=== PATIENT | male | born 1940 | race Caucasian/White ===

== ENCOUNTER 2024-02-17 10:40 | Outpatient (AMB) | payer MEDICARE, SELFPAY ==
[2024-02-17 10:59] VITALS: BP 122/66; PULSE 60; RESP 12; O2SAT 60
--- NOTE | 2024-02-17 10:59 | MHC.PC.OV ---
Vital Signs 02/17/24 10:59 Height 5 ft 10.08 in BP 122/66 Blood Pressure Location Rt brachial Position Sitting Respiration 12 Pulse 60 Pulse Source Pulse Oximeter Pulse Oximetry (%) 60 L Oxygen Delivery Method Room Air Intake Visit Reasons: chris from [facility] Intake Note: Patient is here to transfer care from [facility] [place] [facility] [place] Mcarth[place]. Patient travels to [place] for about 8 months out of the year. Siding Stapler Required: No Accompanied by: Self / Same As Patient Allergies No Known Allergies Allergy (Verified 02/17/24 11:07) Tobacco use date assessed: 02/17/24 Fall risk assessment: No Falls in past year Last assessed Fall Risk: 02/17/24 Dental Screening Dental Screen Date: 02/17/24 Did you have a dental visit in the last 12 months?: Yes Did you have a dental problem in the last 6 months where you did not have access to dental care?: No Was dental information given to patient?: Patient has dentist HPI HPI Comments History of Present Illness Details The patient is an 83 year old male with a past medical history of type 2 diabetes, HOCM, htn, hld, TAA, YAMILA, BING on cpap presenting for follow up. Transfer from [facility]. Spends February - October with the exception of the holidays in [place] Last labs in August T Chol: 127 LDL 66. August 2023. Normal folate and b12. TSH 6.22. Discussed with his [place] doctor rechecking before deciding whether to treat. He has repeat labs ordered for the first week of February. Type 2 diabetes: A1C 5.9%. On metformin 1000mg once daily. Eye exam UTD CHF: stable on current medications. Follows with [facility]. Colonoscopy: 2015-said does not need further. Was having acid reflux flare last year -saw Dr Paredes. This resolved ROS CONSTITUTIONAL: Denies weight loss, fever and chills. HEENT: Denies changes in vision and hearing. RESPIRATORY: Denies SOB and cough. CV: Denies palpitations and CP GI: Denies abdominal pain, nausea, vomiting and diarrhea. : Denies dysuria and urinary frequency. MSK: Denies new myalgia and joint pain. SKIN: Denies rash and pruritus. NEUROLOGICAL: Denies headache PSYCHIATRIC: Denies recent changes in mood. PHYSICAL EXAM: GENERAL: Alert and oriented x 3. NAD EYES: EOMI. Anicteric. HENT: Moist mucous membranes. No scleral icterus. No cervical lymphadenopathy. LUNGS: Clear to auscultation bilaterally. CARDIOVASCULAR: Regular rate and rhythm. No murmur. No JVD. ABDOMEN: Soft, non-tender +bs EXTREMITIES: No edema. Non-tender. SKIN: No rashes or lesions. Warm. NEUROLOGIC: No focal neurological deficits. CN II-XII grossly intact PSYCHIATRIC: Cooperative. Appropriate mood and affect [facility] Medical History Cervical vertebral fusion Severe obesity (BMI 35.0-39.9) with comorbidity Sleep apnea Peripheral nerve disease Impotence Diffuse spasm of esophagus Hypercholesterolemia Hypertension GERD (gastroesophageal reflux disease) Asthma Aneurysm of thoracic aorta Type 2 diabetes mellitus High output HF (heart failure) Surgical History Hx of total knee arthroplasty History of back surgery Family History Mother Heart attack Father Lung cancer Sister Obesity Brother Bladder cancer Prostate cancer Social History Household Members: Spouse Both parents involved: No Caregiver staying overnight: No Housing: House Are you a primary childcare attendant to a significant other at home: No Do you presently have visiting nurse or other home services: No 75 years or older and lives alone: No Alcohol intake: current Alcohol intake frequency: a few times a month Alcohol type: hard liquor Comment: Mark Calderon Patient Tobacco Use Status: Former Tobacco user Tobacco use type: Cigarette Years Smoked: 15 e-Cigarette/Vaping Use: Never Used Use of substances other than those prescribed or required for medical reasons: No Have you been hit, kicked, punched, or otherwise hurt by someone within the past year? If so, by whom?: No Do you feel safe in your current relationship?: Yes Is there a partner from a previous relationship who is making you feel unsafe now?: No Are you made to feel afraid or neglected: No service: Yes ([employer] ) Current occupational status: retired Current occupational exposures/hazards: No Cognitive needs: No Hearing needs: No Vision needs: Yes (wears glasses, has an eye doctor) Questionnaire PHQ-9 Over the last 2 weeks, how often have you been bothered by any of the following problems? 1. Little interest or pleasure in doing things: not at all 2. Feeling down, depressed, or hopeless: not at all 3. Trouble falling or staying asleep, or sleeping too much: not at all 4. Feeling tired or having little energy: not at all 5. Poor appetite or overeating: not at all 6. Feeling bad about yourself - or that you are a failure or have let yourself or your family down: not at all 7. Trouble concentrating on things, such as reading the newspaper or watching television: not at all 8. Moving or speaking so slowly that other people could have noticed. Or the opposite - being so fidgety or restless that you have been moving around a lot more than usual: not at all 9. Thoughts that you would be better off or of hurting yourself in some way: not at all Total score: 0 Depression Screening Interpretation: Negative (neg) Depression Screening Done: Yes 40209 - PHQ-9 Billing: Yes Source: Developed by Drs. Santosh Meade, Kathi Schwartz, Mayito Phelps and colleagues, with an educational erika from [employer]. Thrive Questionnaire Date Thrive assessed: 02/17/24 I am a: Patient What is your living situation today?: I have a steady place to live Within the past 12 months, did the food you bought not last and you didn't have the money to get more?: Never true Within the past 12 months, did you worry whether your food would run out before you got money to buy more?: Never true Do you have trouble paying for medicines?: No Do you have trouble getting transportation to medical appointments?: No Do you have trouble paying your heating and electricity bill?: No Do you have trouble taking care of your child, family member or friend?: No Do you have trouble with day-to-day activities such as bathing, preparing meals, shopping, managing finances, etc.?: No Are you currently unemployed and looking for a job?: No Are you interested in more education?: No Please select the resources that you would like help with: None Currently or been in a relationship where the following occur: No concerns reported THRIVE Score: 0 AUDIT C Alcohol Use Questionnaire (AUDIT-C) 1. How often do you have a drink containing alcohol?: 2-3 times a week 2. How many drinks containing alcohol do you have on a typical day when you are drinking?: 1 or 2 3. How often do you have six or more drinks on one occasion?: Never Total Score: 3 ALYSA-7 AMB Questionnaire ALYSA-7 Date ALYSA - 7 assessed: 02/17/24 Feeling nervous, anxious, or on edge: 0 = Not at all Not being able to stop or control worryin = Not at all Worrying too much about different things: 0 = Not at all Trouble relaxin = Not at all Being so restless that it is hard to sit still: 0 = Not at all Becoming easily annoyed or irritable: 0 = Not at all Feeling afraid as if something awful might happen: 0 = Not at all Total ALYSA-7 score (0-4 normal; 5-9 mild; 10-14 moderate; 15-21 severe): 0 Source: Developed by Drs. Santosh Meade, Kathi Schwartz, Mayito Phelps and colleagues, with an educational erika from [employer]. ALYSA-7 Assessment Billing ALYSA-7 Assessment Tool: ALYSA-7 Assessment 10788 Physical exam (Primary Care) Vital Signs: Last Vital Signs Pulse 60 02/17/24 10:59 Resp 12 02/17/24 10:59 BP 122/66 02/17/24 10:59 Pulse Ox 60 L 02/17/24 10:59 Oxygen Delivery Method Room Air 02/17/24 10:59 Tobacco/Smoking Status: Tobacco use Status Tobacco use date assessed 02/17/24 02/17/24 11:09 Patient Tobacco Use Status Former Tobacco user 02/17/24 11:10 Tobacco use type Cigarette 02/17/24 11:10 e-Cigarette/Vaping Use Never Used 02/17/24 11:10 PHQ-9: PHQ-9 Score PHQ-9: Total score 0 02/17/24 13:00 Depression Screening Interpretation: Negative (neg) Thrive Assessment: Date of Thrive Assessment Date Thrive assessed 02/17/24 02/17/24 10:59 Currently or been in a relationship where the following occur: No concerns reported Assessment and Plan Assessment & Plan (1) Type 2 diabetes mellitus: Code(s): E11.9 - Type 2 diabetes mellitus without complications Qualifiers: Diabetes mellitus complication detail: with other circulatory complications Diabetes mellitus complication status: with circulatory complication Diabetes mellitus superintendent container terminal insulin use: without intermediate use Qualified Code(s): E11.59 - Type 2 diabetes mellitus with other circulatory complications Plan: Controlled on current medications LDL goal <70. At goal. (2) High output HF (heart failure): Code(s): I50.83 - High output heart failure Plan: continue specialist follow up. Euvolemic. Coding Level of Care Code Est Pt Level 5 (21418) Diagnoses Type 2 diabetes mellitus with other circulatory complication, without long-term current use of insulin E11.59 Diabetes mellitus complication detail: with other circulatory complications Diabetes mellitus complication status: with circulatory complication Diabetes mellitus intermediate insulin use: without intermediate use High output HF (heart failure) I50.83 Additional Codes ALYSA-7 Assessment Billing - ALYSA-7 Assessment Tool: ALYSA-7 Assessment 09633 ([id number]) Time Spent (min) 45
== END 2024-02-17 11:41 | disposition home or self-care (01) ==
PROVIDERS: PCP Internal Medicine; Visit Provider Internal Medicine
DX: E11.59 Type 2 diabetes mellitus with other circulatory complications (principal); I50.83 High output heart failure

== ENCOUNTER → 2024-02-17 10:40 | Outpatient (BNVA) | payer MEDICARE, SELFPAY | PROVIDERS: PCP Internal Medicine; Visit Provider Internal Medicine | DX: E11.59 Type 2 diabetes mellitus with other circulatory complications (principal); I50.83 High output heart failure | CPT/HCPCS: 96127; 99212 ==

== ENCOUNTER 2025-02-19 09:48 | Outpatient (AMB) | payer MEDICARE, SELFPAY ==
--- OUTSIDE RECORDS SUMMARY | 2023-10-25 07:15 | XMS_ITS ---
Author Organization [facility] Address [address] [place] [address] Care Team Providers Care On Air Announcer Name Role Phone Mariajose MAC, Sayra Primary Care Provider Unavailab MAXIM Snell REASON FOR VISIT 1 WEEK RECHECK EARS Encounters Encounter Location Date Provider Diagnosis [facility] [address] [place] [address] 10/25/2023 MAXIM LAYNE Plan Of Treatment Next Appt Details Provider Name:MAXIM IRIZARRY, 04/16/2025 02:30:00 PM, [address], [place], [address], Progress Notes * SUN ROSALES JR RDOB:[birth year] (85 yo M)Acc No.[id number]:10/25/2023 Progress Notes Patient: SUN MENDENHALL JR Provider: Maddie Layne PA-C :1940 A ge:83 Y S ex:Male Date:10/25/2023 Address:[address] [place] [address] [facility] Pcp:Sayra Billy MD Subjective: * Chief Complaints: * 1 . 1 WEEK RECHECK EARS. * Medical History: Objective: * Vitals: * Physical Examination: Assessment: Plan: * Treatment: * * Electronic signature of IVET RICO on 02/19/2025 at 11:48 AM EDT Sign off status: Pending * Provider: Maddie Layne PA-C Date: 0 10/25/2023 Generated for Harjit gray/Fritz/Bob on: 0 02/19/2025 11:48 AM EDT
--- OUTSIDE RECORDS SUMMARY | 2024-03-08 09:00 | XMS_ITS ---
Author Organization [facility] Address [address] [place] [address] Care Team Providers Care Patrol Captain Name Role Phone Sayra Billy MD Primary Care Provider Unavailab MAXIM Snell Unavailable REASON FOR VISIT RECHECK EARS Encounters Encounter Location Date Provider Diagnosis [facility] [address] [place] [address] 03/08/2024 MAXIM LAYNE Plan Of Treatment Next Appt Details Provider Name:MAXIM IRIZARRY, 04/16/2025 02:30:00 PM, [address], [place], [address], Progress Notes * SUN ROSALES JR RDOB:[birth year] (85 yo M)Acc No.[id number]:03/08/2024 Progress Notes Patient: SUN MENDENHALL JR Provider: Maddie Layne PA-C :1940 A ge:84 Y S ex:Male Date:03/08/2024 Address:[address] [place], [place] [address] [facility] Pcp:Sayra Billy MD Subjective: * Chief Complaints: * 1 . RECHECK EARS. * Medical History: Objective: * Vitals: * Physical Examination: Assessment: Plan: * Treatment: * * Electronic signature of NIEVES LAYNE , IVET on 02/19/2025 at 11:47 AM EDT Sign off status: Pending * Provider: Maddie Layne PA-C Date: 1 Generated for Harjit gray/Fritz/Bob on: 0 02/19/2025 11:47 AM EDT
--- OUTSIDE RECORDS SUMMARY | 2024-04-19 10:45 | XMS_ITS ---
Author Organization [facility] Address [address] [address] Care Team Providers Care Aerial Sprayer Name Role Phone Roberto Carr Unavailable [phone] Edward Ion Unavailable [phone] REASON FOR VISIT FU with compliance print after mask fitting Encounters Encounter Location Date Provider Diagnosis [facility] [address] [address] 04/19/2024 Ion Leon Plan Of Treatment Next Appt Details Provider Name:Roberto Carr, 1 02:00:00 PM, [address] [place] [address], [place] [address], [place], [address], Progress Notes * SUN ROSALES JR RDOB:[birth year] (85 yo M)Acc No.[id number]:04/19/2024 Progress Notes Patient: Jose SUN MASTERSON JR Provider: Victor Manuel Vernon :1940 A ge:84 Y S ex:Male Date:04/19/2024 Phone: Address:[address] [place], [place] [id number] Subjective: * Chief Complaints: * F U with compliance print after mask fitting * Electronic signature of Claribel Leon , ANDRE on 02/19/2025 at 11:47 AM EDT Sign off status: Pending * Provider: Victor Manuel Vernon Date: 06/19/2023 Generated for Printi ng/Faphig/eTransmitting on: 0 02/19/2025 11:47 AM EDT
--- OUTSIDE RECORDS SUMMARY | 2024-06-16 05:00 | XMS_ITS ---
Author Organization [facility] Address [address] [address] Care Team Providers Care Economics Consultant Name Role Phone Roberto Carr Unavailable [phone] Migration, Provider Unavailable Unavailable REASON FOR VISIT EMR-Hira Encounters Encounter Location Date Provider Diagnosis [facility] [address] [address] 06/16/2024 Provider Migration Plan Of Treatment Next Appt Details Provider Name:Roberto Carr, 1 02:00:00 PM, [address] [place] [address], [address], [address], Progress Notes * SUN ROSALES JR RDOB:[birth year] (85 yo M)Acc No.[id number]:06/16/2024 Patient: SUN MENDENHALL JR :1940 A ge:84 Y S ex:Male Phone: Address:[address] [place] [id number] Subjective: * Chief Complaints: * E MR-Hira * * Date:
--- OUTSIDE RECORDS SUMMARY | 2024-06-17 05:00 | XMS_ITS ---
Author Organization [facility] Address [address] [facility] [address] [place] [address] Care Team Providers Care Hand Bender Name Role Phone Roberto Carr Unavailable [phone] Migration, Provider Unavailable Unavailable Allergies Allergen (clinical drug ingredient) Drug/Non Drug Allergy documented on EMR Reaction Allergy Type Onset Date Status celecoxib CeleBREX Unknown Drug Allergy Active REASON FOR VISIT EMR-Hira Medications Medication SIG (Take, Route, Frequency, Duration) Notes Start Date End Date Status Toprol XL 50 mg tablet,extended release 50 *Reorder from [employer] for eRx and Interaction Alerts* 06/19/2017 Active Losartan Potassium 50 MG Tablet Oral 06/19/2017 Active albuterol sulfate 2.5 mg/3 mL (0.083 %) 2.5 mg Dx: J44.9//VIA NEBULIZER *Reorder from [employer] for eRx and Interaction Alerts* 08/22/2018 Active Lipitor 20 MG Tablet Oral 06/19/2017 Active predniSONE 20 MG Tablet Oral 2 TAB PO QD FOR 7D THEN 1 TAB PO QD X 7D//DX: J20.9 12/11/2018 Active Flonase Allergy Relief 50 mcg/actuation 50 *Reorder from [employer] for eRx and Interaction Alerts* 06/19/2017 Active Xopenex 0.63 mg/3 mL solution for nebuli 0.63 VIA NEBULIZER//J45.20 *Reorder from [employer] for eRx and Interaction Alerts* 08/22/2018 Active Protonix 40 mg tablet,delayed release 40 *Reorder from [employer] for eRx and Interaction Alerts* 06/19/2017 Active Advair Diskus 500 mcg-50 mcg/dose powder 500-50 *Reorder from [employer] for eRx and Interaction Alerts* 03/06/2019 Active hydrocodone 10 mg-chlorpheniramine 8 mg/ 10-8 *Reorder from [employer] for eRx and Interaction Alerts* 01/11/2022 Active Trelegy Ellipta 100 mcg-62.5 mcg-25 mcg 100-62.5-25 *Reorder from [employer] for eRx and Interaction Alerts* 04/11/2019 Active Advair Diskus 250 mcg-50 mcg/dose powder 250-50 *Reorder from [employer] for eRx and Interaction Alerts* 12/30/2021 Active Ventolin HFA 90 mcg/actuation aerosol in 90 *Reorder from [employer] for eRx and Interaction Alerts* 06/19/2017 Active Montelukast Sodium 10 MG Tablet Oral DX: J30.9 08/09/2017 Active predniSONE 10 MG Tablet Oral 02/09/2019 Active Encounters Encounter Location Date Provider Diagnosis [facility] [address] [address] 06/17/2024 Provider Migration Other fatigue R53.83 ; Other hypersomnia G47.19 ; Obstructive sleep apnea (adult) (pediatric) G47.33 and Snoring R06.83 Assessments Encounter Date Diagnosis (ICD Code) Assessment Notes Treatment Notes Treatment Clinical Notes Section Notes 06/17/2024 Other fatigue (ICD-10 - R53.83) 06/17/2024 Other hypersomnia (ICD-10 - G47.19) 06/17/2024 Obstructive sleep apnea (adult) (pediatric) (ICD-10 - G47.33) 06/17/2024 Snoring (ICD-10 - R06.83) Plan Of Treatment Next Appt Details Provider Name:Roberto Carr, 1 02:00:00 PM, [address] [facility] [address], [place], [address], Progress Notes * SUN ROSALES JR RDOB:[birth year] (85 yo M)Acc No.[id number]:06/17/2024 Patient: SUN MENDENHALL JR :1940 A ge:84 Y S ex:Male Phone: Address:[address] [place] [address], [address] Subjective: * Chief Complaints: * E MR-Hira * Medications: T akingMontelukast Sodium 10 MG Tablet Oral , Notes to Pharmacist: DX: J30.9Advair Diskus 500 mcg-50 mcg/dose powder 500-50 , Notes to Pharmacist: *Reorder from [facility] for eRx and Interaction Alerts*Flonase Allergy Relief 50 mcg/actuation 50 , Notes to Pharmacist: *Reorder from [facility] for eRx and Interaction Alerts*Protonix 40 mg tablet,delayed release 40 , Notes to Pharmacist: *Reorder from [facility] for eRx and Interaction Alerts*predniSONE 10 MG Tablet Oral predniSONE 10 MG Tablet Oral , Notes to Pharmacist: TAKE 6 TABS PO DAILY X 7D THEN TAKE 4 TABS PO DAILY X 7D THEN TAKE 2 TABS PO DAILY X 7 DAYSAdvair Diskus 250 mcg-50 mcg/dose powder 250-50 , Notes to Pharmacist: *Reorder from [facility] for eRx and Interaction Alerts*Advair Diskus 500 mcg-50 mcg/dose powder 500-50 , Notes to Pharmacist: *Reorder from [facility] for eRx and Interaction Alerts*hydrocodone 10 mg-chlorpheniramine 8 mg/ 10-8 , Notes to Pharmacist: *Reorder from [facility] for eRx and Interaction Alerts*predniSONE 20 MG Tablet Oral , Notes to Pharmacist: 2 TAB PO QD FOR 7D THEN 1 TAB PO QD X 7D//DX: J20.9albuterol sulfate 2.5 mg/3 mL (0.083 %) 2.5 mg , Notes to Pharmacist: Dx: J44.9//VIA NEBULIZER *Reorder from [facility] for eRx and Interaction Alerts*albuterol sulfate 2.5 mg/3 mL (0.083 %) 2.5 mg , Notes to Pharmacist: *Reorder from [facility] for eRx and Interaction Alerts*Toprol XL 50 mg tablet,extended release 50 , Notes to Pharmacist: *Reorder from [facility] for eRx and Interaction Alerts*Advair Diskus 250 mcg-50 mcg/dose powder 250-50 , Notes to Pharmacist: *Reorder from [facility] for eRx and Interaction Alerts*Trelegy Ellipta 100 mcg-62.5 mcg-25 mcg 100-62.5-25 , Notes to Pharmacist: *Reorder from [facility] for eRx and Interaction Alerts*Ventolin HFA 90 mcg/actuation aerosol in 90 , Notes to Pharmacist: *Reorder from [facility] for eRx and Interaction Alerts*Xopenex 0.63 mg/3 mL solution for nebuli 0.63 , Notes to Pharmacist: VIA NEBULIZER//J45.20 *Reorder from [facility] for eRx and Interaction Alerts*albuterol sulfate 2.5 mg/3 mL (0.083 %) 2.5 mg , Notes to Pharmacist: *Reorder from [facility] for eRx and Interaction Alerts*Advair Diskus 500 mcg-50 mcg/dose powder 500-50 , Notes to Pharmacist: *Reorder from [facility] for eRx and Interaction Alerts*Lipitor 20 MG Tablet Oral Losartan Potassium 50 MG Tablet Oral predniSONE 10 MG Tablet Oral hydrocodone 10 mg-chlorpheniramine 8 mg/ 10-8 , Notes to Pharmacist: *Reorder from [facility] for eRx and Interaction Alerts*predniSONE 10 MG Tablet Oral Xopenex 0.63 mg/3 mL solution for nebuli 0.63 , Notes to Pharmacist: VIA NEBULIZER//J45.20 *Reorder from [facility] for eRx and Interaction Alerts*Taking Montelukast Sodium 10 MG Tablet Oral , Notes to Pharmacist: DX: J30.9Taking Advair Diskus 500 mcg-50 mcg/dose powder 500-50 , Notes to Pharmacist: *Reorder from [facility] for eRx and Interaction Alerts*Taking Flonase Allergy Relief 50 mcg/actuation 50 , Notes to Pharmacist: *Reorder from [facility] for eRx and Interaction Alerts*Taking Protonix 40 mg tablet,delayed release 40 , Notes to Pharmacist: *Reorder from [facility] for eRx and Interaction Alerts*Taking predniSONE 10 MG Tablet Oral Taking predniSONE 10 MG Tablet Oral , Notes to Pharmacist: TAKE 6 TABS PO DAILY X 7D THEN TAKE 4 TABS PO DAILY X 7D THEN TAKE 2 TABS PO DAILY X 7 DAYSTaking Advair Diskus 250 mcg-50 mcg/dose powder 250-50 , Notes to Pharmacist: *Reorder from [facility] for eRx and Interaction Alerts*Taking Advair Diskus 500 mcg-50 mcg/dose powder 500-50 , Notes to Pharmacist: *Reorder from [facility] for eRx and Interaction Alerts*Taking hydrocodone 10 mg-chlorpheniramine 8 mg/ 10-8 , Notes to Pharmacist: *Reorder from [facility] for eRx and Interaction Alerts*Taking predniSONE 20 MG Tablet Oral , Notes to Pharmacist: 2 TAB PO QD FOR 7D THEN 1 TAB PO QD X 7D//DX: J20.9Taking albuterol sulfate 2.5 mg/3 mL (0.083 %) 2.5 mg , Notes to Pharmacist: Dx: J44.9//VIA NEBULIZER *Reorder from [facility] for eRx and Interaction Alerts*Taking albuterol sulfate 2.5 mg/3 mL (0.083 %) 2.5 mg , Notes to Pharmacist: *Reorder from [facility] for eRx and Interaction Alerts*Taking Toprol XL 50 mg tablet,extended release 50 , Notes to Pharmacist: *Reorder from [facility] for eRx and Interaction Alerts*Taking Advair Diskus 250 mcg-50 mcg/dose powder 250-50 , Notes to Pharmacist: *Reorder from [facility] for eRx and Interaction Alerts*Taking Trelegy Ellipta 100 mcg-62.5 mcg-25 mcg 100-62.5-25 , Notes to Pharmacist: *Reorder from [facility] for eRx and Interaction Alerts*Taking Ventolin HFA 90 mcg/actuation aerosol in 90 , Notes to Pharmacist: *Reorder from [facility] for eRx and Interaction Alerts*Taking Xopenex 0.63 mg/3 mL solution for nebuli 0.63 , Notes to Pharmacist: VIA NEBULIZER//J45.20 *Reorder from [facility] for eRx and Interaction Alerts*Taking albuterol sulfate 2.5 mg/3 mL (0.083 %) 2.5 mg , Notes to Pharmacist: *Reorder from [facility] for eRx and Interaction Alerts*Taking Advair Diskus 500 mcg-50 mcg/dose powder 500-50 , Notes to Pharmacist: *Reorder from [facility] for eRx and Interaction Alerts*Taking Lipitor 20 MG Tablet Oral Taking Losartan Potassium 50 MG Tablet Oral Taking predniSONE 10 MG Tablet Oral Taking hydrocodone 10 mg-chlorpheniramine 8 mg/ 10-8 , Notes to Pharmacist: *Reorder from [facility] for eRx and Interaction Alerts*Taking predniSONE 10 MG Tablet Oral Taking Xopenex 0.63 mg/3 mL solution for nebuli 0.63 , Notes to Pharmacist: VIA NEBULIZER//J45.20 *Reorder from [facility] for eRx and Interaction Alerts* * Allergies: C eleBREX: Allergy Assessment: * Assessment: 1. O ther hypersomnia - G47.19 2 . O bstructive sleep apnea (adult) (pediatric) - G47.33 3 . S noring - R06.83 4 . O ther fatigue - R53.83 Billing Information: * Visit Code: 01950 Office Visit, Est Pt., Level 3. * * Date:
--- OUTSIDE RECORDS SUMMARY | 2024-06-27 11:40 | XMS_ITS ---
Author Organization [facility] [employer] [facility] Address [address] [address] Care Team Providers Care New Car Inspector Name Role Phone Stacia Quiles Primary Care Provider LEONARDO Dowd Unavailable [phone] REASON FOR VISIT TURP Medications Medication SIG (Take, Route, Frequency, Duration) Notes Start Date End Date Status Albuterol Sulfate HFA 108 (90 Base) MCG/ACT INHALE 1 PUFF EVERY 4 HOURS NEEDED Inhalation; Duration: 59 Days Active Cephalexin 500 MG Oral; Duration: 10 Days Active Finasteride 5 MG Oral; Duration: 90 Days Active Amitriptyline HCl 10 MG 1 tablet at bedt minerva Orally Once a day; Duration: 30 day(s) 06/21/2024 Active Methocarbamol 500 MG 1.5 tablets Orally every 4 hrs; Duration: 30 day(s) 06/21/2024 07/21/2024 Active metFORMIN HCl 1000 MG Oral; Duration: 90 Days Active Bumetanide 1 MG Oral; Duration: 90 Days Active Potassium Chloride ER 10 MEQ TAKE 1 CAPSULE BY MOUTH WITH FOOD 2 TIMES A DAY Oral; Duration: 90 Days Active Famotidine 40 MG TAKE 1 TABLET DAILY AT BEDTIME Oral; Duration: 90 Days Active Tamsulosin HCl 0.4 MG Oral; Duration: 90 Days Active Losartan Potassium 50 MG Oral; Duration: 90 Days Active Gabapentin 600 MG TAKE 1 TO 2 TABLETS BY MOUTH ONCE A DAY Oral; Duration: 90 Days Active Encounters Encounter Location Date Provider Diagnosis [facility] [address] [address] 06/27/2024 LEONARDO TILLMAN Plan Of Treatment Next Appt Details Provider Name:BEATRICE ASHER, 03/19/2025 10:30:00 AM, [address] [address], [place], [address], Progress Notes * SUN ROSALES JrDOB:[birth year] (85 yo M)Acc No.[id number]:06/27/2024 Patient: SUN MENDENHALL Provider: Kwadwo TILLMAN MD :1940 A ge:84 Y S ex:Male Date:06/27/2024 Address:[address] [place], [place] [id number] Pcp:Stacia Quiles Subjective: * Chief Complaints: * 1 . TURP. * Medical History: * Medications: T aking Gabapentin 600 MG Tablet TAKE 1 TO 2 TABLETS BY MOUTH ONCE A DAY Oral , Taking Losartan Potassium 50 MG Tablet Oral , Taking Tamsulosin HCl 0.4 MG Capsule Oral , Taking Famotidine 40 MG Tablet TAKE 1 TABLET DAILY AT BEDTIME Oral , Taking Potassium Chloride ER 10 MEQ Capsule Extended Release TAKE 1 CAPSULE BY MOUTH WITH FOOD 2 TIMES A DAY Oral , Taking Bumetanide 1 MG Tablet Oral , Taking metFORMIN HCl 1000 MG Tablet Oral , Taking Albuterol Sulfate HFA 108 (90 Base) MCG/ACT Aerosol Solution INHALE 1 PUFF EVERY 4 HOURS NEEDED Inhalation , Taking Methocarbamol 500 MG Tablet 1.5 tablets Orally every 4 hrs , stop date 07/21/2024, Taking Amitriptyline HCl 10 MG Tablet 1 tablet at bedtime Orally Once a day , Taking Finasteride 5 MG Tablet Oral , Taking Cephalexin 500 MG Capsule Oral Objective: * Vitals: Assessment: Plan: * Treatment: * Billing Information: * Visit Code: * Procedure Codes: * Electronic signature of HOMERO TILLMAN MD on 02/19/2025 at 11:48 AM EDT Sign off status: Pending * Provider: Kwadwo TILLMAN MD Date: 06/27/2024 Generated for Harjit gray/Fritz/Bob on: 02/19/2025 11:48 AM EDT
--- OUTSIDE RECORDS SUMMARY | 2024-07-10 09:30 | XMS_ITS ---
Author Organization [facility] Address [address] [address] Care Team Providers Care Sales Representative [facility] Name Role Phone Roberto Carr Unavailable [phone] Suzie Corrales Unavailable [phone] REASON FOR VISIT FU with compliance print after mask fitting Encounters Encounter Location Date Provider Diagnosis [facility] [address] [address] 07/10/2024 Suzie Corrales Plan Of Treatment Next Appt Details Provider Name:Roberto Carr, 1 02:00:00 PM, [address] [place] [address], [address] [address], [place], [address], Progress Notes * SUN ROSALES JR RDOB:[birth year] (85 yo M)Acc No.[id number]:07/10/2024 Progress Notes Patient: Jose CHANSUN Fisher JR Provider: Darlene Corrales :1940 A ge:84 Y S ex:Male Date:07/10/2024 Phone: Address:[address] [place], [place] [id number] Subjective: * Chief Complaints: * F U with compliance print after mask fitting * Electronic signature of Santa Corrales , ANDRE, [id number] on 02/19/2025 at 11:48 AM EDT Sign off status: Pending * Provider: Darlene Corrales Date: 0 07/10/2024 Generated for Ernestinei ng/Faxing/eTransmitting on: 0 02/19/2025 11:48 AM EDT
--- NOTE | 2025-02-19 09:52 | A.OFFPC_ITS ---
Vital Signs 02/19/25 09:55 Height 5 ft 10.8 in Weight 264 lb BMI 37.0 BP 118/64 Blood Pressure Location Rt brachial Position Sitting Respiration 14 Pulse 75 Pulse Source Pulse Oximeter Temp 98.2 F Temp Source Oral Pulse Oximetry (%) 95 Oxygen Delivery Method Room Air Intake Visit Reasons: Follow up Intake Note: Follow up Heavy Equipment Supervisor Required: No Allergies No Known Allergies Allergy (Verified 02/19/25 09:53) Tobacco use date assessed: 02/19/25 Fall risk assessment: No Falls in past year Last assessed Fall Risk: 02/19/25 Dental Screening Dental Screen Date: 02/19/25 Did you have a dental visit in the last 12 months?: Yes Did you have a dental problem in the last 6 months where you did not have access to dental care?: No Was dental information given to patient?: Patient has dentist HPI HPI Comments History of Present Illness Details The patient is an 85 year old male with a past medical history of type 2 diabetes, HOCM, htn, hld, TAA, YAMILA, BING on cpap presenting for follow up. Spends February - October with the exception of the holidays in [place] Type 2 diabetes: A1C 5.6%. On metformin 1000mg once daily. Eye exam UTD. Had full labs in August 2024 in [place]-scanned in CHF: stable on current medications. Follows with [facility] clinic. Has a provider service representative in [place]. Increased cough, wheezing for the past few days. No weight gain, no chest pressure Had emergency TURP in [place] May 2024. Following up there Colonoscopy: 2016-said does not need further. Was having acid reflux flare last year -saw Dr Paredes. This resolved ROS see HPI PHYSICAL EXAM: GENERAL: Alert and oriented x 3. NAD EYES: EOMI. Anicteric. HENT: Moist mucous membranes. No scleral icterus. No cervical lymphadenopathy. LUNGS: Clear to auscultation bilaterally. CARDIOVASCULAR: Regular rate and rhythm. No murmur. No JVD. ABDOMEN: Soft, non-tender +bs EXTREMITIES: No edema. Non-tender. SKIN: No rashes or lesions. Warm. NEUROLOGIC: No focal neurological deficits. CN II-XII grossly intact PSYCHIATRIC: Cooperative. Appropriate mood and affect [facility] Medical History (Updated 02/20/25 @ 11:23 by Kathi Mcarthur MD) Cervical vertebral fusion Severe obesity (BMI 35.0-39.9) with comorbidity Sleep apnea Peripheral nerve disease Impotence Diffuse spasm of esophagus Hypercholesterolemia Hypertension GERD (gastroesophageal reflux disease) Asthma Aneurysm of thoracic aorta Type 2 diabetes mellitus High output HF (heart failure) Surgical History Hx of total knee arthroplasty History of back surgery Family History Mother Heart attack Father Lung cancer Sister Obesity Brother Bladder cancer Prostate cancer Social History Household Members: Spouse Both parents involved: No Caregiver staying overnight: No Housing: House Are you a primary critical care nurse to a significant other at home: No Do you presently have visiting nurse or other home services: No 75 years or older and lives alone: No Alcohol intake: current Alcohol intake frequency: a few times a month Alcohol type: hard liquor Comment: Mark Calderon Patient Tobacco Use Status: Former Tobacco user Tobacco use type: Cigarette Years Smoked: 15 e-Cigarette/Vaping Use: Never Used service: Yes ([employer] ) Current occupational status: retired Current occupational exposures/hazards: No Cognitive needs: No Hearing needs: No Vision needs: Yes (wears glasses, has an eye doctor) Questionnaire Thrive Questionnaire Date Thrive assessed: 02/17/24 I am a: Patient What is your living situation today?: I have a steady place to live Within the past 12 months, did the food you bought not last and you didn't have the money to get more?: Never true Within the past 12 months, did you worry whether your food would run out before you got money to buy more?: Never true Do you have trouble paying for medicines?: No Do you have trouble getting transportation to medical appointments?: No Do you have trouble paying your heating and electricity bill?: No Do you have trouble taking care of your child, family member or friend?: No Do you have trouble with day-to-day activities such as bathing, preparing meals, shopping, managing finances, etc.?: No Are you currently unemployed and looking for a job?: No Are you interested in more education?: No Please select the resources that you would like help with: None Currently or been in a relationship where the following occur: No concerns reported THRIVE Score: 0 ALYSA-7 AMB Questionnaire ALYSA-7 Date ALYSA - 7 assessed: 02/17/24 Source: Developed by Drs. Santosh Meade, Kathi Schwartz, Mayito Phelps and colleagues, with an educational erika from [employer]. Physical exam (Primary Care) Vital Signs: Last Vital Signs Temp 98.2 F 02/19/25 09:55 Pulse 75 02/19/25 09:55 Resp 14 02/19/25 09:55 BP 118/64 02/19/25 09:55 Pulse Ox 95 02/19/25 09:55 Oxygen Delivery Method Room Air 02/19/25 09:55 BMI result Body Mass Index 37.0 Tobacco/Smoking Status: Tobacco use Status Tobacco use date assessed 02/19/25 02/19/25 10:04 Patient Tobacco Use Status Former Tobacco user 02/19/25 09:55 Tobacco use type Cigarette 02/19/25 09:55 e-Cigarette/Vaping Use Never Used 02/19/25 09:55 Thrive Assessment: Date of Thrive Assessment Date Thrive assessed 02/17/24 02/19/25 09:55 Currently or been in a relationship where the following occur: No concerns reported Results AMB Hemoglobin A1c AMB Hemoglobin A1c 5.6 % Last Edit by Colleen Maddox CMA on 02/19/25 10:11 Results Reviewed Results Reviewed: Laboratory Last Values Hgb A1c (Clinic) 5.6 % (4.0-6.0) 02/19/25 10:05 Coding Level of Care Code Est Pt Level 4 (40907) Diagnoses Type 2 diabetes mellitus with other circulatory complication, without long-term current use of insulin E11.59 Diabetes mellitus terminal system operator insulin use: without chcf use Diabetes mellitus complication status: with circulatory complication Diabetes mellitus complication detail: with other circulatory complications High output HF (heart failure) I50.83 Acute cough R05.1 Cough type: acute Assessment & Plan Assessment & Plan (1) Type 2 diabetes mellitus: Code(s): E11.9 - Type 2 diabetes mellitus without complications Category: Medical Qualifiers: Diabetes mellitus chcf insulin use: without chcf use Diabetes mellitus complication status: with circulatory complication Diabetes mellitus complication detail: with other circulatory complications Qualified Code(s): E11.59 - Type 2 diabetes mellitus with other circulatory complications (2) High output HF (heart failure): Code(s): I50.83 - High output heart failure Category: Medical (3) Cough: Code(s): R05.9 - Cough, unspecified Category: Medical Qualifiers: Cough type: acute Qualified Code(s): R05.1 - Acute cough Plan Type 2 DM-well controlled on current medication. A1C is at goal without hypoglycemia. Continue at least annual eye exams. CHF-euvolemic Cough minimal wheeze-zpak and prednisone if symptoms persist/worsen Blood pressure is stable on current medications. Efforts todward weight loss. Low salt diet Orders: Orders AMB Hemoglobin A1c 02/19/25 E11.59 - Type 2 diabetes mellitus with other circulatory complications Medications: New azithromycin For 250 mg dose pack: take 500 mg today (day 1), then 250 mg for 4 days (days 2-5) PO 6 tabs 0RF prednisone 40 mg (2 x 20 mg) PO DAILY 10 tabs 0RF
[2025-02-19 09:55] VITALS: BP 118/64; PULSE 75; RESP 14; TEMP 36.8; O2SAT 95; BMI 37.0
--- OUTSIDE RECORDS SUMMARY | 2025-02-19 11:48 | XMS_ITS | Patient Health Record ---
Author Organization [facility] Address [address] [place] [address] Care Team Providers Care Clinical Geneticist Name Role Phone Mariajose MAC, Sayra Primary Care Provider Unavailab lelo XIMAXIM CLARK Unavailable Allergies No Known Allergies Reason For Referral No Information Medications Medication SIG (Take, Route, Frequency, Duration) Notes Start Date End Date Status Protonix 40 MG 1 tablet Orally Once a day Active Azelastine-Fluticasone 137-50 MCG/ACT 2 sprays in each nostril Nasally once every night; Duration: 30 day(s) Active metFORMIN HCl 500 MG 1 tablet with a patricia l Orally Once a day Active Toprol XL 25 MG 1 tablet Orally Once a day Active Gabapentin 600 MG 1 tablet Orally Thre e times a day Active Clotrimazole 1 % 5 drops LEFT EAR Twi ce a day; Duration: 10 days Active Social History Tobacco Use: Social History Observation Description Date Details (start date - stop date) Former Smoker NA - NA Tobacco Use: Question Answer Notes Are you a: former smoker How long has it been since y ou last smoked? > 10 years Additional Findings: Tobacco Non-User Ex -very heavy cigarette smoker (40+/day) Alcohol Screening: Question Answer Notes Did you have a drink contain ing alcohol in the past year? Yes How often did you have a dri nk containing alcohol in the past year? Two to three times per week (3 points) How many drinks did you have on a typical day when you were drinking in the past year? 1 or 2 (0 points) How often did you have six o r more drinks on one occasion in the past year? Never (0 points) Points 3 Interpretation Negative Smoking Question Answer Notes Are you a: former smoker AUDIT-C (Standard) Question Answer Notes Did you have a drink containing alcohol in the p ast year? 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 [address] [facility] [address] [place] [address] 03/13/2024 MAXIM XI Unspecified chronic otitis externa, bilateral H60.63 and Acquired stenosis of external ear canal, unspecified, bilateral H61.303 [facility] [address] [facility] [address] [place] [address] 10/02/2024 MAXIM XI Unspecified chronic otitis externa, bilateral H60.63 and Acquired stenosis of external ear canal, unspecified, bilateral H61.303 Assessments Encounter Date Diagnosis (ICD Code) Assessment Notes Treatment Notes Treatment Clinical Notes Section Notes 03/13/2024 Unspecified chronic otitis externa, bilateral (ICD-10 - H60.63) s/p debridement, keep ear canals dry, start the ear hygiene. *Pt w/narrow ear canals, advised to keep ears dry, do not hold ear up to shower water, use tissue on pinkie finger to dry inside ear opening, use academic department chair on cool for 15-20secs 6inches away from ear opening to dry, do no use Qtips, use 1/2 white vinegar/1/2 rubbing alcohol in plastic travel bottle, squeeze drops into canals, pump tragus and let drain out in sink or shower. rinse w/the solution 2 times each side every other day. use cream to meati 1x a week 03/13/2024 Acquired stenosis of external ear canal, unspecified, bilateral (ICD-10 - H61.303) 10/02/2024 Unspecified chronic otitis externa, bilateral (ICD-10 - H60.63) s/p debridement, keep ear canals dry, start the ear hygiene. *Pt w/narrow ear canals, advised to keep ears dry, do not hold ear up to shower water, use tissue on pinkie finger to dry inside ear opening, use academic department chair on cool for 15-20secs 6inches away from ear opening to dry, do no use Qtips, use 1/2 white vinegar/1/2 rubbing alcohol in plastic travel bottle, squeeze drops into canals, pump tragus and let drain out in sink or shower. rinse w/the solution 2 times each side every other day. use cream to meati 1x a week 10/02/2024 Acquired stenosis of external ear canal, unspecified, bilateral (ICD-10 - H61.303) Plan Of Treatment Next Appt Details Provider Name:MAXIM IRIZARRY, 04/16/2025 02:30:00 PM, [address], [address], [place], [address], Insurance Providers Payer Name Payer Address Payer Phone Subscriber Number Group Number Insured Name Patient Relationship to Insured Coverage Start Date Coverage End Date MEDICARE [place] PART B [address] [place] [address] [id number] SUN ROSALES JR Self - patient is the insured [place] [address] [place] [address] [phone] [id number] SUN ROSALES JR Self - patient is the insured Medical (General) History Medical History History ICD Code Arthritis Esophageal reflux asthma sleep apnea COPD Diabetes Surgical History Surgery Date(Month/Year) neck surgery Hospitalization History Reason Date(Month/Year)
--- OUTSIDE RECORDS SUMMARY | 2025-02-19 11:48 | XMS_ITS | Patient Health Record ---
Author Organization [facility] Address [address] [facility] [address] [place] [address] Care Team Providers Care Title Abstractor Name Role Phone Roberto Carr Unavailable [phone] Ion Leon Unavailable [phone] Suzie Corrales Unavailable [phone] Migration, Provider Unavailable Unavailable Reason For Referral No Information Medications Medication SIG (Take, Route, Frequency, Duration) Notes Start Date End Date Status Xopenex 0.63 mg/3 mL solution for nebuli 0.63 VIA NEBULIZER//J45.20 *Reorder from [employer] for eRx and Interaction Alerts* 08/22/2018 Active Ventolin HFA 90 mcg/actuation aerosol in 90 *Reorder from [employer] for eRx and Interaction Alerts* 06/19/2017 Active Lipitor 20 MG Tablet Oral 06/19/2017 Active predniSONE 20 MG Tablet Oral 2 TAB PO QD FOR 7D THEN 1 TAB PO QD X 7D//DX: J20.9 12/11/2018 Active hydrocodone 10 mg-chlorpheniramine 8 mg/ 10-8 *Reorder from [facility]ulmonx for eRx and Interaction Alerts* 01/11/2022 Active Toprol XL 50 mg tablet,extended release 50 *Reorder from [employer] for eRx and Interaction Alerts* 06/19/2017 Active Losartan Potassium 50 MG Tablet Oral 06/19/2017 Active albuterol sulfate 2.5 mg/3 mL (0.083 %) 2.5 mg Dx: J44.9//VIA NEBULIZER *Reorder from [employer] for eRx and Interaction Alerts* 08/22/2018 Active Trelegy Ellipta 100 mcg-62.5 mcg-25 mcg 100-62.5-25 *Reorder from [employer] for eRx and Interaction Alerts* 04/11/2019 Active Flonase Allergy Relief 50 mcg/actuation 50 *Reorder from [employer] for eRx and Interaction Alerts* 06/19/2017 Active Advair Diskus 250 mcg-50 mcg/dose powder 250-50 *Reorder from [employer] for eRx and Interaction Alerts* 12/30/2021 Active Protonix 40 mg tablet,delayed release 40 *Reorder from [employer] for eRx and Interaction Alerts* 06/19/2017 Active Montelukast Sodium 10 MG Tablet Oral DX: J30.9 08/09/2017 Active predniSONE 10 MG Tablet Oral 02/09/2019 Active Advair Diskus 500 mcg-50 mcg/dose powder 500-50 *Reorder from [employer] for eRx and Interaction Alerts* 03/06/2019 Active Problems Problem Type SNOMED Code ICD Code Onset Dates Problem Status W/U Status Risk Notes Problem Obesity (649811424) Obesity, unspecified (E66.9) Active confirmed Problem Hypersomnia (61992410) Other hypersomnia (G47.19) Active confirmed Problem Obstructive sleep apnea syndrome (disorder) (66798423) Obstructive sleep apnea (adult) (pediatric) (G47.33) Active confirmed Problem Acute bronchitis (98210859) Acute bronchitis, unspecified (J20.9) Active confirmed Problem Allergic rhinitis (59935100) Allergic rhinitis, unspecified (J30.9) Active confirmed Problem Chronic obstructive pulmonary disease (14299685) Chronic obstructive pulmonary disease, unspecified (J44.9) Active confirmed Problem Mild intermittent asthma (737219694) Mild intermittent asthma, uncomplicated (J45.20) Active confirmed Problem Uncomplicated asthma (disorder) (415020298) Unspecified asthma, uncomplicated (J45.909) Active confirmed Problem Cough (34045037) Cough (R05) Active confirmed Problem Dyspnea (350205108) Dyspnea, unspecified (R06.00) Active confirmed Problem Shortness of breath (228128657) Shortness of breath (R06.02) Active confirmed Problem Snoring (57932570) Snoring (R06.83) Active confirmed Problem Hypoxemia (290467918) Hypoxemia (R09.02) Active confirmed Problem Postnasal drip (97112273) Postnasal drip (R09.82) Active confirmed Problem Fatigue (06972230) Other fatigue (R53.83) Active confirmed Problem Viral screening (263274993) Encounter for screening for other viral diseases (Z11.59) Active confirmed Problem Dependence on supplemental oxygen (794297623193) Dependence on supplemental oxygen (Z99.81) Active confirmed Encounters Encounter Location Date Provider Diagnosis [facility] [address] [address] 06/16/2024 Provider [facility] [address] [address] 06/17/2024 Provider Migration Other fatigue R53.83 ; Other hypersomnia G47.19 ; Obstructive sleep apnea (adult) (pediatric) G47.33 and Snoring R06.83 Assessments Encounter Date Diagnosis (ICD Code) Assessment Notes Treatment Notes Treatment Clinical Notes Section Notes 06/17/2024 Other hypersomnia (ICD-10 - G47.19) 06/17/2024 Obstructive sleep apnea (adult) (pediatric) (ICD-10 - G47.33) 06/17/2024 Snoring (ICD-10 - R06.83) 06/17/2024 Other fatigue (ICD-10 - R53.83) Plan Of Treatment Next Appt Details Provider Name:Roberto Carr, 1 02:00:00 PM, [address] [place] [address], [address] [address], [place], [address], Insurance Providers Payer Name Payer Address Payer Phone Subscriber Number Group Number Insured Name Patient Relationship to Insured Coverage Start Date Coverage End Date [facility] [address] [facility] [place] [address] [id number] SUN ROSALES JR Self - patient is the insured 8 3 Medicare Part B [address] [place] Page [id number] SUN ROSALES JR Self - patient is the insured 8 3
--- OUTSIDE RECORDS SUMMARY | 2025-02-19 11:48 | XMS_ITS | Patient Health Record ---
Author Organization Formerly [facility] Main Address [address] [place] [address] Care Team Providers Care Group Supervisor Yard Name Role Phone Stacia Borjas M.D. Primary Care Provi RODOLFO Green Unavailable [phone] Allergies Allergen (clinical drug ingredient) Drug/Non Drug Allergy documented on EMR Reaction Allergy Type Onset Date Status celecoxib Celebrex Intoleranceunknown Drug Allergy Active Results Component Value Reference Range Notes Tobacco Screening and Cessas frank Reviewed date:02/23/2024 11:50:57 AM Interpretation:undefined Performing Lab: Notes/Report: undefined BP Check Reviewed date:02/23/2024 11:50:55 AM Interpretation:undefined Performing Lab: Notes/Report: undefined BMI Counselling Reviewed date:02/23/2024 11:50:53 AM Interpretation:undefined Performing Lab: Notes/Report: undefined Fall Risk Assessment Reviewed date:02/23/2024 11:50:51 AM Interpretation:undefined Performing Lab: Notes/Report: undefined Reason For Referral No Information Medications Medication SIG (Take, Route, Frequency, Duration) Notes Start Date End Date Status Losartan Potassium 50 MG 1 tablet Orally Once a day; Duration: 90 days Supply Active Atorvastatin Calcium 20 MG 1 tablet Oral ly Once a day Active Bumex 0.5 MG 1 tablet Orally Once a day; Duration: 30 day(s) Active Ondansetron HCl 4 MG 1 tablet Orally Onc e a day PRN; Duration: 30 day(s) Not-Taking metFORMIN HCl 1000 MG 1 tablet with a me al Oral Once a day; Duration: 90 Days Active Famotidine 40 MG 1 tablet at bedtime Orally Once a day; Duration: 30 day(s) Active Pantoprazole Sodium 40 MG TAKE 1 TABLET BY MOUTH EVERY DAY FOR 90 DAYS Oral; Duration: 90 Active Klor-Con M20 20 MEQ 1 tablet with food Orally Once a day Active Methocarbamol 500 MG 1 tab Orally once a day; Duration: 10 days Active Ventolin HFA 90 mcg/actuation aerosol inhaler Take as Directed 06/08/2016 Active Gabapentin 600 mg tablet 1 tab orally tw ice a day 06/08/2016 Active Amitriptyline HCl 10 MG 1 tablet at bedt minerva Orally Once a day as needed; Duration: 30 day(s) Active Fluticasone Propionate 50 MCG/ACT 1 spray in each nostril Nasally Once a day Active Cialis 20 MG 1 tablet Orally; Duration: 30 day(s) Active Tamsulosin HCl 0.4 MG 1 capsule Orally t wice a day Not-Taking Social History Tobacco Use: Social History Observation Description Date Details (start date - stop date) Former Smoker NA - NA Tobacco Use/Smoking Question Answer Notes Are you a former smoker Tobacco use other than smoking: Question Answer Notes Are you an other tobacco user? No AUDIT-C (Standard) Question Answer Notes Did you have a drink containing alcohol in the p ast year? No Points 0 Interpretation Negative Problems Problem Type SNOMED Code ICD Code Onset Dates Problem Status W/U Status Risk Notes Problem Edema (20937203) Edema (R60.9) Active confirmed Problem Dyspnea (450562618) Dyspnea (R06.00) Active confirmed Problem Obesity (611747325) Obesity (BMI 30-39.9) (E66.9) Active confirmed Problem Asthma (289502155) Asthma (J45.909) Active confirmed Problem Obstructive sleep apnea syndrome (72275727) BING (obstructive sleep apnea) (G47.33) Active confirmed Problem Aortic valve disorder (8833188) Aortic stenosis (I35.0) Active confirmed Problem Dyspnea on exertion (52000644) CARDONA (dyspnea on exertion) (R06.09) Active confirmed Problem Pulmonary hypertension (88450918) Pulmonary HTN (I27.20) Active confirmed 03/30/19 cath - mildly elevated LVEDp, normal RAP, mildly elevated PCWP, mild pulm HTN, mildly elevated CO/CI Problem Diastolic dysfunction (1966862) Diastolic dysfunction (I51.89) Active confirmed Problem Atherosclerosis of bilateral carotid arteries (disorder) (164474659999118) Bilateral carotid artery disease, unspecified type (I73.9) Active confirmed Problem Chronic dyspnea (731404285) Chronic dyspnea (R06.09) Active confirmed Problem Thoracic aortic aneurysm without rupture (disorder) (11766905) Thoracic aortic aneurysm without rupture, unspecified part (I71.20) Active confirmed 07/2017 4.3 cm ascending aortic aneurysm Problem Hyperlipidemia (27388124) Hyperlipidemia , unspecified (E78.5) 017 Active confirmed Problem Essential hypertension (98794718) Essential (primary) hypertension (I10) 017 Active confirmed Problem Thoracic aortic aneurysm without rupture (39055927) Thoracic aortic aneurysm, without rupture (I71.2) 017 Active confirmed 07/2017 4.3 cm ascending aortic aneurysm Vital Signs Heart Rate 73 /min 09/11/2024 Blood pressure diastolic 56 mm Hg 09/11/2024 Oximetry 73 % 09/11/2024 Height 72 in 09/11/2024 Blood pressure systolic 112 mm Hg 09/11/2024 Weight 260 lbs 09/11/2024 BMI 35.26 kg/m2 09/11/2024 Encounters Encounter Location Date Provider Diagnosis [facility] [place] [address] [place] [address] 09/11/2024 [facility] Hyperlipidemia, unspecified E78.5 ; Aortic stenosis I35.0 ; Thoracic aortic aneurysm without rupture, unspecified part I71.20 ; Essential (primary) hypertension I10 ; Bilateral carotid artery disease, unspecified type I73.9 ; Pulmonary HTN I27.20 ; Diastolic dysfunction I51.89 ; Chronic dyspnea R06.09 ; Edema R60.9 ; BING (obstructive sleep apnea) G47.33 ; Asthma J45.909 and Obesity (BMI 30-39.9) E66.9 [facility] - [address] [place] [address] 06/13/2024 RODOLFO WILLIAMSON [facility] - [address] [place] [address] 06/21/2024 RODOLFO WILLIAMSON Assessments Encounter Date Diagnosis (ICD Code) Assessment Notes Treatment Notes Treatment Clinical Notes Section Notes 09/11/2024 Hyperlipidemia, unspecified (ICD-10 - E78.5) Learning About High Cholesterol material was published 09/11/2024 Aortic stenosis (ICD-10 - I35.0) 09/11/2024 Thoracic aortic aneurysm without rupture, unspecified part (ICD-10 - I71.20) 07/2017 4.3 cm ascending aortic aneurysm 09/11/2024 Essential (primary) hypertension (ICD-10 - I10) 09/11/2024 Bilateral carotid artery disease, unspecified type (ICD-10 - I73.9) 09/11/2024 Pulmonary HTN (ICD-10 - I27.20) 03/30/19 cath - mildly elevated LVEDp, normal RAP, mildly elevated PCWP, mild pulm HTN, mildly elevated CO/CI 09/11/2024 Diastolic dysfunction (ICD-10 - I51.89) 09/11/2024 Chronic dyspnea (ICD-10 - R06.09) 09/11/2024 Edema (ICD-10 - R60.9) 09/11/2024 BING (obstructive sleep apnea) (ICD-10 - G47.33) 09/11/2024 Asthma (ICD-10 - J45.909) 09/11/2024 Obesity (BMI 30-39.9) (ICD-10 - E66.9) 09/11/[address] Williamson's plan of care, we will continue with atorvastatin, losartan, Bumex, potassium, pantoprazole, famotidine. Patient's blood pressure and heart rate are within desired range his most recent LDL is at goal. He has previously been evaluated with a right and left heart catheter in 2018 which revealed no significant CAD no MR no significant AAS and an EF of 55 to 60% with mild pulmonary hypertension. His echocardiogram in 2022 showed mild aortic stenosis and a normal ejection fraction and grade 1 diastolic dysfunction. I will have patient follow-up in 1 year we will repeat echocardiogram for surveillance of aortic valve stenosis prior to follow-up as well as a CTA of the chest prior to his year follow-up. Case was reviewed with Dr. Williamson. He is having labs done with his PCP next week and he will provide a copy. Plan Of Treatment Future Test Test Name Order Date CTA Thoracic aorta 10/20/2023 Echocardiogram 09/18/2024 Next Appt Details Provider Name:RODOLFO WILLIAMSON Rachel 09/10/2025 01:00:00 PM, [address], [place], [address], Provider Name:RODOLFO WILLIAMSON, 0 09/17/2025 01:00:00 PM, [address], [place], [address], Insurance Providers Payer Name Payer Address Payer Phone Subscriber Number Group Number Insured Name Patient Relationship to Insured Coverage Start Date Coverage End Date [employer] [place] / [employer] [address] [place] [address] [id number] John Brunson Self - patient is the insured 7 / OUT OF STATE [address] [place], [place] [id number] John Brunson Self - patient is the insured Medical (General) History Medical History History ICD Code Thoracic aortic aneurysm, without ruptur e I71.2 Essential (primary) hypertension I10 Hyperlipidemia, unspecified E78.5 Chronic obstructive pulmonary disease, u nspecified COPD type J44.9 Moderate asthma, unspecified whether complicated, unspecified whether persistent J45.909 Surgical History Surgery Date(Month/Year)
--- OUTSIDE RECORDS SUMMARY | 2025-02-19 11:49 | XMS_ITS | Patient Health Record ---
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 Name Role Phone MD Stacia Borjas Primary Care Provide r [phone] Allergies Allergen (clinical drug ingredient) Drug/Non Drug Allergy documented on EMR Reaction Allergy Type Onset Date Status dust (uncoded) Unknown Allergy Activ e plant (uncoded) Unknown Allergy Acti ve celecoxib CeleBREX intolerance unknown Drug Allergy Active Reason For Referral Reason eval and treat Diagnosis 1 Benign prostatic hyp erplasia without lower urinary tract symptoms (N40.0) Referral Organization [facility] Referring Provider First Name Stacia Referring Provider Last Name Etta cain Referring Provider Speciality Internal M edicine Referred Provider Heriberto Howe Referred Provider Specialty Urology Referral Priority Routine Medications Medication SIG (Take, Route, Frequency, Duration) Notes Start Date End Date Status Gabapentin 600 MG TAKE 1 TO 2 TABLETS BY MOUTH ONCE DAILY; Duration: 90 Active metFORMIN HCl 1000 MG 1 tablet with a me al Once a day; Duration: 90 days Active Bumetanide 1 MG 1 tablet in am and half tablet in pm Orally Once a day; Duration: 90 days Active Ventolin HFA 108 (90 Base) MCG/ACT 1 puff as needed Inhalation every 4 hrs; Duration: 90 days Active Amitriptyline HCl 10 MG 1 tablet at bedtime Orally Once a day; Duration: 90 days As needed as needed Active Klor-Con M10 10 MEQ 1 tablet with food Orally once a day; Duration: 90 days Active Cialis 10 MG 1 tablet as needed Orally Once a day; Duration: 90 days Active traMADol HCl 50 MG 1 tablet as needed acute pain exception Orally every 8 hrs; Duration: 7 days 05/13/2023 Active Fluticasone Propionate 50 MCG/ACT 1 spray in each nostril Nasally Once a day; Duration: 90 days Active Famotidine 40 MG 1 tablet at bedtime Orally Once a day; Duration: 90 days Active Diclofenac Sodium 1 % APPLY 1 GRAM TOPICALLY TO AFFECTED AREA TWICE A DAY; Duration: 30 Not-Taking Atorvastatin Calcium 20 MG 1 tablet Orally every other day; Duration: 90 days Active Losartan Potassium 50 MG 1 tablet Orally Once a day; Duration: 90 days Active Voltaren 1 % 1 gram Transdermal twice a day; Duration: 30 days Active Methocarbamol 500 MG 1 tablet as needed Orally once a day; Duration: 90 days Active Potassium Chloride 10 MEQ 1 packet with food Orally Twice a day Active Tamsulosin HCl 0.4 MG 2 capsule Orally O nce a day; Duration: 90 days Not-Taking Immunizations Vaccine Route Administration Date Status Comme nts COVID 19 PFIZER Unknown 07/07/2020 Administered COVID 19 PFIZER Unknown 07/25/2020 Administered Fluad quad Unknown 04/02/2021 Administered Fluzone High Dose IM Intramuscular 04/05/2023 Administered Fluzone High Dose IM Intramuscular 03/26/2024 Administered Pfizer booster Unknown 09/14/2021 Administered Pneumococcal conjugate PCV 13 Unknown 09/30/2014 Administered Tdap Unknown 06/19/2013 Administered Social History Tobacco Use: Social History Observation Description Date Details (start date - stop date) Never Smoker NA - NA Sex Assigned At : Social History Observation Description Sex Assigned At Male Tobacco Use/Smoking Question Answer Notes Are you a former smoker How long has it been since y ou last smoked? > 10 years Additional Findings: Tobacco User Heavy cigarett e smoker (20-39 cigs/day) Additional Findings: Tobacco Non-User Current no n-smoker Alcohol Screen (Audit-C) Question Answer Notes Did you have a drink contain ing alcohol in the past year? Yes How often did you have a dri nk containing alcohol in the past year? Monthly or less (1 point) How many drinks did you have on a typical day when you were drinking in the past year? 1 or 2 drinks (0 point) How often did you have 6 or more drinks on one occasion in the past year? Never (0 point) Points 1 Interpretation Negative Tobacco use other than smoking: Question Answer Notes Are you an other tobacco user? No Tobacco Control (Standard) Question Answer Notes Tobacco use: Nonsmoker AUDIT-C (Standard) Question Answer Notes Did you have a drink contain ing alcohol in the past year? Yes How often did you have six o r more drinks on one occasion in the past year? Never (0 point) How many drinks did you have on a typical day when you were drinking in the past year? 1 or 2 drinks (0 point) How often did you have a dri nk containing alcohol in the past year? Monthly or less (1 point) Points 1 Interpretation Negative Problems Problem Type SNOMED Code ICD Code Onset Dates Problem Status W/U Status Risk Notes Problem Anemia (923869555) Anemia, unspecified (D64.9) Active confirmed Problem Morbid obesity (disorder) (439895891) Morbid (severe) obesity due to excess calories (E66.01) Active confirmed Problem Hyperlipidemia (02773530) Hyperlipidemia, unspecified (E78.5) Active confirmed Problem Sleep apnea (67140662) Sleep apnea, unspecified (G47.30) Active confirmed Problem Essential hypertension (53193255) Essential (primary) hypertension (I10) Active confirmed Problem Chronic diastolic heart failure (441765743) Chronic diastolic (congestive) heart failure (I50.32) Active confirmed Problem Atherosclerosis of aorta (54448611) Atherosclerosis of aorta (I70.0) Active confirmed Problem Thoracic aortic aneurysm without rupture (10441164) Thoracic aortic aneurysm, without rupture (I71.2) Active confirmed Problem Chronic obstructive pulmonary disease (39886184) Chronic obstructive pulmonary disease, unspecified (J44.9) Active confirmed Problem Gastro-esophageal reflux disease without esophagitis (926824979) Gastro-esophageal reflux disease without esophagitis (K21.9) Active confirmed Problem Low back pain (342822234) Low back pain (M54.5) Active confirmed Problem Impaired fasting glucose (628756934) Impaired fasting glucose (R73.01) Active confirmed Problem Benign prostatic hypertrophy without outflow obstruction (967902932) Benign prostatic hyperplasia without lower urinary tract symptoms (N40.0) Active confirmed Problem Prediabetes (961363017) Prediabetes (R73.03) Active confirmed Problem Type 2 diabetes mellitus with other specified complication, without long-term current use of insulin (E11.69) Active confirmed Problem Hyperglycemia due to type 2 diabetes mellitus (949475733506993) Type 2 diabetes mellitus with hyperglycemia, without long-term current use of insulin (E11.65) Active confirmed Problem Pulmonary nodule (902441328) Pulmonary nodule (R91.1) Active confirmed Problem Neuropathy (343227401) Neuropathy (G62.9) Active confirmed Problem Chronic systolic heart failure (886984485) Chronic systolic congestive heart failure (I50.22) Active confirmed Problem Acute exacerbation of chronic obstructive airways disease (768624591) COPD exacerbation (J44.1) Active confirmed Problem 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 (due to use of Prednis one) Problem Obese class II (059271558542639) Body mass index (BMI) of 35.0 to 35.9 (Z68.35) Active confirmed Problem Degenerative disc disease (65390730) DDD (degenerative disc disease), lumbar (M51.36) Active confirmed Problem Diverticular disease of colon (004417116) Colon, diverticulosis (K57.30) Active confirmed Problem Aneurysm of ascending aorta (disorder) (821274375) Ascending aortic aneurysm, unspecified whether ruptured (I71.21) Active confirmed Problem Body mass index 30.00 to 34.99 (098615565395290) Body mass index [BMI] 34.0-34.9, adult (Z68.34) Active confirmed Problem Body mass index 35.00 to 39.99 (050150663840576) Body mass index (BMI) 36.0-36.9, adult (Z68.36) Problem resolved confirmed Problem Body mass index 35.00 to 39.99 (225090325907339) Body mass index (BMI) 37.0-37.9, adult (Z68.37) Problem resolved confirmed Problem Body mass index 35.00 to 39.99 (016036308892711) Body mass index (BMI) 38.0-38.9, adult (Z68.38) Problem resolved confirmed Problem Body mass index 30.00 to 34.99 (096253243711675) BMI 34.0-34.9,adult (Z68.34) Problem resolved confirmed Problem Body mass index 35.00 to 39.99 (918633115418612) Body mass index (BMI) of 36.0 to 36.9 (Z68.36) Problem resolved confirmed Vital Signs Heart Rate 85 /min 10/01/2024 Blood pressure diastolic 66 mm Hg 10/01/2024 Oximetry 95 % 10/01/2024 Height 6'0 in 10/01/2024 Blood pressure systolic 102 mm Hg 10/01/2024 Weight 255.6 lbs 10/01/2024 BMI 34.66 kg/m2 10/01/2024 Encounters Encounter Location Date Provider Diagnosis [facility] [address] [place] [address] 03/26/2024 Stacia Kilpatrick Encounter for general adult medical examination without abnormal findings Z00.00 ; Encounter for screening for malignant neoplasm of colon Z12.11 ; Encounter for screening for malignant neoplasm of prostate Z12.5 ; Advanced directives, counseling/discussion Z71.89 ; Immunization counseling Z71.85 ; Other specified counseling Z71.89 ; Encounter for screening for cardiovascular disorders Z13.6 ; Type 2 diabetes mellitus with other specified complication, without long-term current use of insulin E11.69 ; Essential (primary) hypertension I10 ; Hyperlipidemia, unspecified E78.5 ; Chronic obstructive pulmonary disease, unspecified J44.9 ; Benign prostatic hyperplasia without lower urinary tract symptoms N40.0 ; Atherosclerosis of aorta I70.0 ; Chronic diastolic (congestive) heart failure I50.32 ; Bilateral lower extremity edema R60.0 ; Anemia, unspecified D64.9 ; Neuropathy G62.9 ; Ascending aortic aneurysm, unspecified whether ruptured I71.21 ; Pulmonary nodule R91.1 ; Elevated TSH R79.89 ; Gastro-esophageal reflux disease without esophagitis K21.9 ; Low back pain M54.50 ; Other intervertebral disc degeneration, lumbar region with discogenic back pain only M51.360 and Body mass index (BMI) of 35.0 to 35.9 Z68.35 [facility] [address] [place] [address] 10/01/2024 Stacia Kilpatrick Encounter for screening for malignant neoplasm of colon Z12.11 ; Encounter for general adult medical examination with abnormal findings Z00.01 ; Encounter for screening for malignant neoplasm of prostate Z12.5 ; Advanced directives, counseling/discussion Z71.89 ; Immunization counseling Z71.85 ; Other specified counseling Z71.89 ; Encounter for screening for cardiovascular disorders Z13.6 ; Type 2 diabetes mellitus with other specified complication, without long-term current use of insulin E11.69 ; Essential (primary) hypertension I10 ; Hyperlipidemia, unspecified E78.5 ; Chronic obstructive pulmonary disease, unspecified J44.9 ; Benign prostatic hyperplasia without lower urinary tract symptoms N40.0 ; Atherosclerosis of aorta I70.0 ; Chronic diastolic (congestive) heart failure I50.32 ; Bilateral lower extremity edema R60.0 ; Anemia, unspecified D64.9 ; Neuropathy G62.9 ; Ascending aortic aneurysm, unspecified whether ruptured I71.21 ; Pulmonary nodule R91.1 ; Gastro-esophageal reflux disease without esophagitis K21.9 ; Low back pain M54.50 ; Other intervertebral disc degeneration, lumbar region with discogenic back pain only M51.360 ; Pyuria R82.81 ; Acute midline low back pain without sciatica M54.50 and Body mass index [BMI] 34.0-34.9, adult Z68.34 [facility] [address] [address] 05/09/2024 Stacia Kilpatrick Essential (primary) hypertension I10 ; Hyperlipidemia, unspecified E78.5 ; Benign prostatic hyperplasia without lower urinary tract symptoms N40.0 ; Chronic obstructive pulmonary disease, unspecified J44.9 ; Bilateral lower extremity edema R60.0 ; Type 2 diabetes mellitus with other specified complication, without long-term current use of insulin E11.69 and Gastro-esophageal reflux disease without esophagitis K21.9 [facility] [address] [address] 06/14/2024 Stacia Kilpatrick [facility] [address] [place] [address] 06/18/2024 Stacia Kilpatrick [facility] [address] [place] [address] 02/13/2025 Stacia Kilpatrick Chronic obstructive pulmonary disease, unspecified J44.9 [facility] [address] [place] [address] 09/24/2024 Stacia Kilpatrick [facility] [address] [facility] [address] [place] [address] 09/24/2024 Stacia Kilpatrick Assessments Encounter Date Diagnosis (ICD Code) Assessment Notes Treatment Notes Treatment Clinical Notes Section Notes 05/09/2024 Essential (primary) hypertension (ICD-10 - I10) 10/01/2024 Encounter for screening for malignant neoplasm of colon (ICD-10 - Z12.11) encounter both wkhn-wq-ktwk and caq-vazy-ns-fa ce: To prepare for the patient, evaluate the patients condition, and management options. Counted for documenting, reviewing records, labs, sending referral, instructions and disposition. Time spent 45 min 02/13/2025 Chronic obstructive pulmonary disease, unspecified (ICD-10 - J44.9) 03/26/2024 Encounter for general adult medical examination without abnormal findings (ICD-10 - Z00.00) Physicians should ask all adults about tobacco use and provide tobacco cessation interventions for those who use tobacco products. Physicians should screen all adults for alcohol misuse and provide behavioral counseling interventions to reduce alcohol misuse in individuals who engage in risky or hazardous drinking. Adults should be screened for elevated body mass index. Patients with obesity should be offered intensive counseling and behavioral interventions to promote sustained weight loss. Women 45 years and older should be screened for dyslipidemia if at increased risk of CHD. Women 50 to 74 years of age should be screened for breast cancer with mammography biennially. Adults 50 to 75 years of age should be screened for colorectal cancer with an FOBT annually, sigmoidoscopy every five years with an FOBT every three years, or colonoscopy every 10 years. Routine screening for ovarian cancer with bimanual examination, transvaginal ultrasonography, or cancer antigen 125 testing is not recommended. Women 65 years and older should be screened for osteoporosis. Adults should be screened for high blood pressure. encounter both fzgf-wy-fnjm and niu-lpha-zl-fa ce: To prepare for the patient, evaluate the patients condition, and management options. Counted for documenting, reviewing records, labs, sending referral, instructions and disposition moderate mdm 03/26/2024 Encounter for screening for malignant neoplasm of colon (ICD-10 - Z12.11) encounter both ebbg-ic-guwd and rra-fpdx-dl-fa ce: To prepare for the patient, evaluate the patients condition, and management options. Counted for documenting, reviewing records, labs, sending referral, instructions and disposition moderate [facility] 03/26/2024 Encounter for screening for malignant neoplasm of prostate (ICD-10 - Z12.5) encounter both cnta-zz-huit and cdw-qpgw-yo-fa ce: To prepare for the patient, evaluate the patients condition, and management options. Counted for documenting, reviewing records, labs, sending referral, instructions and disposition moderate [facility] 10/01/2024 Encounter for general adult medical examination with abnormal findings (ICD-10 - Z00.01) Physicians should ask all adults about tobacco use and provide tobacco cessation interventions for those who use tobacco products. Physicians should screen all adults for alcohol misuse and provide behavioral counseling interventions to reduce alcohol misuse in individuals who engage in risky or hazardous drinking. Adults should be screened for elevated body mass index. Patients with obesity should be offered intensive counseling and behavioral interventions to promote sustained weight loss. Women 45 years and older should be screened for dyslipidemia if at increased risk of CHD. Women 50 to 74 years of age should be screened for breast cancer with mammography biennially. Adults 50 to 75 years of age should be screened for colorectal cancer with an FOBT annually, sigmoidoscopy every five years with an FOBT every three years, or colonoscopy every 10 years. Routine screening for ovarian cancer with bimanual examination, transvaginal ultrasonography, or cancer antigen 125 testing is not recommended. Women 65 years and older should be screened for osteoporosis. Adults should be screened for high blood pressure. encounter both ryuy-rr-sdgt and cpf-auby-hi-fa ce: To prepare for the patient, evaluate the patients condition, and management options. Counted for documenting, reviewing records, labs, sending referral, instructions and disposition. Time spent 45 min 10/01/2024 Encounter for screening for malignant neoplasm of prostate (ICD-10 - Z12.5) encounter both jzwi-oj-nmtk and cbl-isff-nw-fa ce: To prepare for the patient, evaluate the patients condition, and management options. Counted for documenting, reviewing records, labs, sending referral, instructions and disposition. Time spent 45 min 05/09/2024 Hyperlipidemia, unspecified (ICD-10 - E78.5) 05/09/2024 Benign prostatic hyperplasia without lower urinary tract symptoms (ICD-10 - N40.0) 10/01/2024 Advanced directives, counseling/discuss ion (ICD-10 - Z71.89) Physicians should ask all adults about tobacco use and provide tobacco cessation interventions for those who use tobacco products. Physicians should screen all adults for alcohol misuse and provide behavioral counseling interventions to reduce alcohol misuse in individuals who engage in risky or hazardous drinking. Adults should be screened for elevated body mass index. Patients with obesity should be offered intensive counseling and behavioral interventions to promote sustained weight loss. Women 45 years and older should be screened for dyslipidemia if at increased risk of CHD. Women 50 to 74 years of age should be screened for breast cancer with mammography biennially. Adults 50 to 75 years of age should be screened for colorectal cancer with an FOBT annually, sigmoidoscopy every five years with an FOBT every three years, or colonoscopy every 10 years. Routine screening for ovarian cancer with bimanual examination, transvaginal ultrasonography, or cancer antigen 125 testing is not recommended. Women 65 years and older should be screened for osteoporosis. Adults should be screened for high blood pressure. patient has living will,poa is his daugther and son encounter both fnsc-fb-bids and ydc-ovcj-vb-fa ce: To prepare for the patient, evaluate the patients condition, and management options. Counted for documenting, reviewing records, labs, sending referral, instructions and disposition. Time spent 45 min 03/26/2024 Advanced directives, counseling/discuss ion (ICD-10 - Z71.89) Physicians should ask all adults about tobacco use and provide tobacco cessation interventions for those who use tobacco products. Physicians should screen all adults for alcohol misuse and provide behavioral counseling interventions to reduce alcohol misuse in individuals who engage in risky or hazardous drinking. Adults should be screened for elevated body mass index. Patients with obesity should be offered intensive counseling and behavioral interventions to promote sustained weight loss. Women 45 years and older should be screened for dyslipidemia if at increased risk of CHD. Women 50 to 74 years of age should be screened for breast cancer with mammography biennially. Adults 50 to 75 years of age should be screened for colorectal cancer with an FOBT annually, sigmoidoscopy every five years with an FOBT every three years, or colonoscopy every 10 years. Routine screening for ovarian cancer with bimanual examination, transvaginal ultrasonography, or cancer antigen 125 testing is not recommended. Women 65 years and older should be screened for osteoporosis. Adults should be screened for high blood pressure. patient has living will< POA is his encounter both omrg-uo-bsnl and dhs-tuec-oe-fa ce: To prepare for the patient, evaluate the patients condition, and management options. Counted for documenting, reviewing records, labs, sending referral, instructions and disposition moderate [facility] 03/26/2024 Immunization counseling (ICD-10 - Z71.85) encounter both xiwc-vd-tmsh and tou-dbco-dz-fa ce: To prepare for the patient, evaluate the patients condition, and management options. Counted for documenting, reviewing records, labs, sending referral, instructions and disposition moderate mdm 10/01/2024 Immunization counseling (ICD-10 - Z71.85) encounter both bgiv-pq-jczx and ebb-ulip-du-fa ce: To prepare for the patient, evaluate the patients condition, and management options. Counted for documenting, reviewing records, labs, sending referral, instructions and disposition. Time spent 45 min 05/09/2024 Chronic obstructive pulmonary disease, unspecified (ICD-10 - J44.9) 10/01/2024 Other specified counseling (ICD-10 - Z71.89) encounter both dqts-wu-avcr and mmi-sucv-lt-fa ce: To prepare for the patient, evaluate the patients condition, and management options. Counted for documenting, reviewing records, labs, sending referral, instructions and disposition. Time spent 45 min 05/09/2024 Bilateral lower extremity edema (ICD-10 - R60.0) 03/26/2024 Other specified counseling (ICD-10 - Z71.89) encounter both favz-xc-tsac and vww-wjlv-bl-fa ce: To prepare for the patient, evaluate the patients condition, and management options. Counted for documenting, reviewing records, labs, sending referral, instructions and disposition moderate [facility] 10/01/2024 Encounter for screening for cardiovascular disorders (ICD-10 - Z13.6) encounter both arhc-cg-uhno and bww-ceor-is-fa ce: To prepare for the patient, evaluate the patients condition, and management options. Counted for documenting, reviewing records, labs, sending referral, instructions and disposition. Time spent 45 min 03/26/2024 Encounter for screening for cardiovascular disorders (ICD-10 - Z13.6) encounter both ukyr-ny-ornb and upk-vtkg-ol-fa ce: To prepare for the patient, evaluate the patients condition, and management options. Counted for documenting, reviewing records, labs, sending referral, instructions and disposition moderate mdm 05/09/2024 Type 2 diabetes mellitus with other specified complication, without long-term current use of insulin (ICD-10 - E11.69) 05/09/2024 Gastro-esophageal reflux disease without esophagitis (ICD-10 - K21.9) 10/01/2024 Type 2 diabetes mellitus with other specified complication, without long-term current use of insulin (ICD-10 - E11.69) Follow [id number] ADA diet, graduated exercise, weight loss to goal BMI <28, keep blood pressure below 130/80, regular foot exam, check blood sugars daily, bring log at next appointment, eye exam yearly if no retinopathy present, if so as per recommendations from ophtalmologist encounter both epuy-xm-oebq and hqh-eddq-ex-fa ce: To prepare for the patient, evaluate the patients condition, and management options. Counted for documenting, reviewing records, labs, sending referral, instructions and disposition. Time spent 45 min 03/26/2024 Type 2 diabetes mellitus with other specified complication, without long-term current use of insulin (ICD-10 - E11.69) Follow 5691-7052 ADA diet, graduated exercise, weight loss to goal BMI <28, keep blood pressure below 130/80, regular foot exam, check blood sugars daily, bring log at next appointment, eye exam yearly if no retinopathy present, if so as per recommendations from ophtalmologist encounter both szlv-tm-nmkq and xgf-vrwp-od-fa ce: To prepare for the patient, evaluate the patients condition, and management options. Counted for documenting, reviewing records, labs, sending referral, instructions and disposition moderate mdm 10/01/2024 Essential (primary) hypertension (ICD-10 - I10) RECOMMENDATIONS: Graduate execise, decrease stress, reduce sodium intake, take your medication regurarly, try a healty diet. Eating a diet that is rich in whole grains, fruits, vegetables and low-fat dairy products and skimps on saturated fat and cholesterol can lower your blood pressure by up to 11 mm Hg if you have high blood pressure. This eating plan is known as the Dietary Approaches to Stop Hypertension (DASH) diet. MOnitor your blood pressure at home and contact your doctor if the readings are over 140/90 consistently. Quit smoking, lower alcohol consumption and caffeine intake encounter both hfoy-ej-znzu and miq-jyes-zm-fa ce: To prepare for the patient, evaluate the patients condition, and management options. Counted for documenting, reviewing records, labs, sending referral, instructions and disposition. Time spent 45 min 03/26/2024 Essential (primary) hypertension (ICD-10 - I10) RECOMMENDATIONS: Graduate execise, decrease stress, reduce sodium intake, take your medication regurarly, try a healty diet. Eating a diet that is rich in whole grains, fruits, vegetables and low-fat dairy products and skimps on saturated fat and cholesterol can lower your blood pressure by up to 11 mm Hg if you have high blood pressure. This eating plan is known as the Dietary Approaches to Stop Hypertension (DASH) diet. MOnitor your blood pressure at home and contact your doctor if the readings are over 140/90 consistently. Quit smoking, lower alcohol consumption and caffeine intake encounter both cqwa-gw-ozcp and zyl-fcbf-ej-fa ce: To prepare for the patient, evaluate the patients condition, and management options. Counted for documenting, reviewing records, labs, sending referral, instructions and disposition moderate mdm 03/26/2024 Hyperlipidemia, unspecified (ICD-10 - E78.5) RECOMMENDATIONS; EXERCISE, PROPERLY BALANCED DIET CONSISTING OF PREFERABLY ORGANIC FOODS, POTERINS FRIENDLY FATS AND COMPLEX CARBS MEDICATIONS: no changes in current treatment FOLLOW UP: Check lipid panel in 6 monthspatient stoped taking Lipitor due to side effects . Advise to re-start at least once a week for 2 weeks then increase to 2 days a week as tolerated. Will repeat Lipids in 3 months. patient was seen by the maitre d' 2 weeks ago. He informed the maitre d' of his legs and that he feels better without the Lipitor. encounter both sqml-ro-ekan and bsl-zxyx-kg-fa ce: To prepare for the patient, evaluate the patients condition, and management options. Counted for documenting, reviewing records, labs, sending referral, instructions and disposition moderate mdm 10/01/2024 Hyperlipidemia, unspecified (ICD-10 - E78.5) RECOMMENDATIONS; EXERCISE, PROPERLY BALANCED DIET CONSISTING OF PREFERABLY ORGANIC FOODS, POTERINS FRIENDLY FATS AND COMPLEX CARBS MEDICATIONS: no changes in current treatment FOLLOW UP: Check lipid panel in 6 monthspatient stoped taking Lipitor due to side effects . Advise to re-start at least once a week for 2 weeks then increase to 2 days a week as tolerated. Will repeat Lipids in 3 months. patient was seen by the maitre d' 2 weeks ago. He informed the maitre d' of his legs and that he feels better without the Lipitor. encounter both cxai-ce-cakz and rvp-njve-dk-fa ce: To prepare for the patient, evaluate the patients condition, and management options. Counted for documenting, reviewing records, labs, sending referral, instructions and disposition. Time spent 45 min 03/26/2024 Chronic obstructive pulmonary disease, unspecified (ICD-10 - J44.9) Take your medicines exactly as your doctor tells you. Use your inhaler as directed by your doctor. If your symptoms do not get better after you use your medicine, have someone take you to the emergency room. Call an ambulance if necessary. With inhaled medicines, a spacer or a nebulizer may help you get more medicine to your lungs. Ask your doctor or pharmacist how to use them properly. Practise using the spacer in front of a mirror before you have an exacerbation. This may help you get the medicine into your lungs quickly. If your doctor has given you steroid pills, take them as directed. Your doctor may have given you a prescription for antibiotics, which you can fill if you need it. Talk to your doctor if you have any problems with your medicine. And call your doctor if you have to use your antibiotic or steroid pills. Preventing an exacerbation Do not smoke. This is the most important step you can take to prevent more damage to your lungs and prevent problems. If you already smoke, it is never too late to stop. If you need help quitting, talk to your doctor about stop-smoking programs and medicines. These can increase your chances of quitting for good. Take your daily medicines as prescribed. Avoid colds and influenza (flu). Get a pneumococcal vaccine. Get a flu vaccine each year, as soon as it is available. Ask those you live or work with to do the same, so they will not get the flu and infect you. Try to stay away from people with colds or the flu. Wash your hands often. Avoid second-hand smoke; air pollution; cold, dry air; hot, humid air; and high altitudes. Stay at home with your windows closed when air pollution is bad. Learn breathing techniques for COPD, such as breathing through pursed lips. These techniques can help you breathe easier during an exacerbation. Call 911 anytime you think you may need emergency care. For example, call if: You have severe trouble breathing. You have severe chest pain. Call your doctor or nurse call line now or seek immediate medical care if: You have new or worse shortness of breath. You develop new chest pain. You are coughing more deeply or more often, especially if you notice more mucus or a change in the colour of your mucus. You cough up blood. You have new or increased swelling in your legs or belly. You have a fever. Watch closely for changes in your health, and be sure to contact your doctor or nurse call line if: You need to use your antibiotic or steroid pills. Your symptoms are getting worse.seeing tool and machine maintainer encounter both qnfu-eg-mwkn and xxx-ebsr-kg-fa ce: To prepare for the patient, evaluate the patients condition, and management options. Counted for documenting, reviewing records, labs, sending referral, instructions and disposition [facility] 10/01/2024 Chronic obstructive pulmonary disease, unspecified (ICD-10 - J44.9) Take your medicines exactly as your doctor tells you. Use your inhaler as directed by your doctor. If your symptoms do not get better after you use your medicine, have someone take you to the emergency room. Call an ambulance if necessary. With inhaled medicines, a spacer or a nebulizer may help you get more medicine to your lungs. Ask your doctor or pharmacist how to use them properly. Practise using the spacer in front of a mirror before you have an exacerbation. This may help you get the medicine into your lungs quickly. If your doctor has given you steroid pills, take them as directed. Your doctor may have given you a prescription for antibiotics, which you can fill if you need it. Talk to your doctor if you have any problems with your medicine. And call your doctor if you have to use your antibiotic or steroid pills. Preventing an exacerbation Do not smoke. This is the most important step you can take to prevent more damage to your lungs and prevent problems. If you already smoke, it is never too late to stop. If you need help quitting, talk to your doctor about stop-smoking programs and medicines. These can increase your chances of quitting for good. Take your daily medicines as prescribed. Avoid colds and influenza (flu). Get a pneumococcal vaccine. Get a flu vaccine each year, as soon as it is available. Ask those you live or work with to do the same, so they will not get the flu and infect you. Try to stay away from people with colds or the flu. Wash your hands often. Avoid second-hand smoke; air pollution; cold, dry air; hot, humid air; and high altitudes. Stay at home with your windows closed when air pollution is bad. Learn breathing techniques for COPD, such as breathing through pursed lips. These techniques can help you breathe easier during an exacerbation. Call 911 anytime you think you may need emergency care. For example, call if: You have severe trouble breathing. You have severe chest pain. Call your doctor or nurse call line now or seek immediate medical care if: You have new or worse shortness of breath. You develop new chest pain. You are coughing more deeply or more often, especially if you notice more mucus or a change in the colour of your mucus. You cough up blood. You have new or increased swelling in your legs or belly. You have a fever. Watch closely for changes in your health, and be sure to contact your doctor or nurse call line if: You need to use your antibiotic or steroid pills. Your symptoms are getting worse.seeing tool and machine maintainer encounter both pwfa-ih-hwtv and hax-mnvc-yr-fa ce: To prepare for the patient, evaluate the patients condition, and management options. Counted for documenting, reviewing records, labs, sending referral, instructions and disposition. Time spent 45 min 10/01/2024 Benign prostatic hyperplasia without lower urinary tract symptoms (ICD-10 - N40.0) sees urologist-he wasn't a candidate for the green light procedure kirk Ward encounter both gskp-ji-ahmi and uyf-otum-il-fa ce: To prepare for the patient, evaluate the patients condition, and management options. Counted for documenting, reviewing records, labs, sending referral, instructions and disposition. Time spent 45 min 03/26/2024 Benign prostatic hyperplasia without lower urinary tract symptoms (ICD-10 - N40.0) sees urologist-he wasn't a candidate for the green light procedure kirk Ward encounter both fzbs-qg-jpqr and wfc-kgrc-ln-fa ce: To prepare for the patient, evaluate the patients condition, and management options. Counted for documenting, reviewing records, labs, sending referral, instructions and disposition moderate mdm 03/26/2024 Atherosclerosis of aorta (ICD-10 - I70.0) Risk factors discussed, aggressive lipid control, daily aspirin for cardioprotection, monitor BP, lose weight, exercise seeing maitre d' in [place] encounter both eimk-mt-krae and jxv-ztfi-rl-fa ce: To prepare for the patient, evaluate the patients condition, and management options. Counted for documenting, reviewing records, labs, sending referral, instructions and disposition moderate [facility] 10/01/2024 Atherosclerosis of aorta (ICD-10 - I70.0) Risk factors discussed, aggressive lipid control, daily aspirin for cardioprotection, monitor BP, lose weight, exercise seeing maitre d' in [place] encounter both cxob-gg-ksjw and pvy-kqzp-mz-fa ce: To prepare for the patient, evaluate the patients condition, and management options. Counted for documenting, reviewing records, labs, sending referral, instructions and disposition. Time spent 45 min 10/01/2024 Chronic diastolic (congestive) heart failure (ICD-10 - I50.32) Sodium restricted diet 2g Fluid restriction (if indicated) Monitoring of daily weights What to do if HF symptoms worsen: call MD office Physical activity level counseling 20min daily Treatment and adherence education givenfollowed up by a maitre d' encounter both eldk-ss-lkds and kmf-xdtn-ul-fa ce: To prepare for the patient, evaluate the patients condition, and management options. Counted for documenting, reviewing records, labs, sending referral, instructions and disposition. Time spent 45 min 03/26/2024 Chronic diastolic (congestive) heart failure (ICD-10 - I50.32) Sodium restricted diet 2g Fluid restriction (if indicated) Monitoring of daily weights What to do if HF symptoms worsen: call MD office Physical activity level counseling 20min daily Treatment and adherence education givenfollowed up by a maitre d' encounter both jhne-xq-kdou and rsx-mbwi-cv-fa ce: To prepare for the patient, evaluate the patients condition, and management options. Counted for documenting, reviewing records, labs, sending referral, instructions and disposition moderate mdm 03/26/2024 Bilateral lower extremity edema (ICD-10 - R60.0) Leg and Ankle Edema: Care Instructions material was published encounter both tgsx-dn-ovha and dut-isul-xj-fa ce: To prepare for the patient, evaluate the patients condition, and management options. Counted for documenting, reviewing records, labs, sending referral, instructions and disposition moderate [facility] 10/01/2024 Bilateral lower extremity edema (ICD-10 - R60.0) Leg and Ankle Edema: Care Instructions material was published encounter both wtww-sq-cgsi and rnf-gpmj-no-fa ce: To prepare for the patient, evaluate the patients condition, and management options. Counted for documenting, reviewing records, labs, sending referral, instructions and disposition. Time spent 45 min 03/26/2024 Anemia, unspecified (ICD-10 - D64.9) Call office if any noticed blood in stool, advised to report any new or worsening signs/symptoms (increased fatigue or weakness), advised I will continue to monitor CBC encounter both ceps-gv-bwzv and qmx-zaik-vs-fa ce: To prepare for the patient, evaluate the patients condition, and management options. Counted for documenting, reviewing records, labs, sending referral, instructions and disposition moderate [facility] 10/01/2024 Anemia, unspecified (ICD-10 - D64.9) Call office if any noticed blood in stool, advised to report any new or worsening signs/symptoms (increased fatigue or weakness), advised I will continue to monitor CBC encounter both tmll-is-uoos and zmz-jtsb-bl-fa ce: To prepare for the patient, evaluate the patients condition, and management options. Counted for documenting, reviewing records, labs, sending referral, instructions and disposition. Time spent 45 min 03/26/2024 Neuropathy (ICD-10 - G62.9) has been stable,needs to wear a cane encounter both hvve-cq-hpfg and ooa-elrh-mr-fa ce: To prepare for the patient, evaluate the patients condition, and management options. Counted for documenting, reviewing records, labs, sending referral, instructions and disposition moderate [facility] 10/01/2024 Neuropathy (ICD-10 - G62.9) has been stable,needs to wear a cane encounter both rmbm-lm-kjaa and jsy-tjfj-tu-fa ce: To prepare for the patient, evaluate the patients condition, and management options. Counted for documenting, reviewing records, labs, sending referral, instructions and disposition. Time spent 45 min 10/01/2024 Ascending aortic aneurysm, unspecified whether ruptured (ICD-10 - I71.21) latest CTA 07/2023 showed 4.6cm, sees Dr Arora they may not check it anymore encounter both jgpf-zl-krsh and mri-tzwd-ue-fa ce: To prepare for the patient, evaluate the patients condition, and management options. Counted for documenting, reviewing records, labs, sending referral, instructions and disposition. Time spent 45 min 03/26/2024 Ascending aortic aneurysm, unspecified whether ruptured (ICD-10 - I71.21) latest CTA 07/2023 showed 4.6cm, sees Dr Arora they may not check it anymore encounter both ypox-kb-rhuo and ypn-oblx-mx-fa ce: To prepare for the patient, evaluate the patients condition, and management options. Counted for documenting, reviewing records, labs, sending referral, instructions and disposition moderate [facility] 03/26/2024 Pulmonary nodule (ICD-10 - R91.1) stable, has not chnged ,latest scan 08/20 encounter both ffep-ub-uhjp and liu-jckx-ez-fa ce: To prepare for the patient, evaluate the patients condition, and management options. Counted for documenting, reviewing records, labs, sending referral, instructions and disposition moderate [facility] 10/01/2024 Pulmonary nodule (ICD-10 - R91.1) stable, has not chnged ,latest scan 08/20 encounter both hfnz-mi-bgof and fnx-vzda-vr-fa ce: To prepare for the patient, evaluate the patients condition, and management options. Counted for documenting, reviewing records, labs, sending referral, instructions and disposition. Time spent 45 min 10/01/2024 Gastro-esophageal reflux disease without esophagitis (ICD-10 - K21.9) Avoid NSAIDs/Aspirin, d/c or limit alcohol, elevate head of bed, avoid spicy foods, weight loss, avoid late meals and tight clothing RECOMMENDATION: No change in current medication regimen encounter both hmwu-lv-giyb and thu-vmyd-de-fa ce: To prepare for the patient, evaluate the patients condition, and management options. Counted for documenting, reviewing records, labs, sending referral, instructions and disposition. Time spent 45 min 03/26/2024 Elevated TSH (ICD-10 - R79.89) encounter both gurs-hq-gifu and uml-dugx-is-fa ce: To prepare for the patient, evaluate the patients condition, and management options. Counted for documenting, reviewing records, labs, sending referral, instructions and disposition moderate mdm 03/26/2024 Gastro-esophageal reflux disease without esophagitis (ICD-10 - K21.9) Avoid NSAIDs/Aspirin, d/c or limit alcohol, elevate head of bed, avoid spicy foods, weight loss, avoid late meals and tight clothing RECOMMENDATION: No change in current medication regimen encounter both bfxb-nb-vrir and dxc-iybj-yg-fa ce: To prepare for the patient, evaluate the patients condition, and management options. Counted for documenting, reviewing records, labs, sending referral, instructions and disposition moderate mdm 10/01/2024 Low back pain (ICD-10 - M54.50) Cold packs/moist hear, massage, exercise program, lose weight, no lifting,bending or twisting, avoid NSAIDs due to CKD/risk for PUD, use Tylenol Arthritis, most patient improve within one month with conservative treatment, TENS unit encounter both wwmv-jh-ymyt and dqw-shiv-dc-fa ce: To prepare for the patient, evaluate the patients condition, and management options. Counted for documenting, reviewing records, labs, sending referral, instructions and disposition. 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 Counted for documenting, reviewing records, labs, sending referral, instructions and disposition. Time spent 45 min 03/26/2024 Low back pain (ICD-10 - M54.50) Cold packs/moist hear, massage, exercise program, lose weight, no lifting,bending or twisting, avoid NSAIDs due to CKD/risk for PUD, use Tylenol Arthritis, most patient improve within one month with conservative treatment, TENS unit encounter both yzco-dt-fwmd and bbp-okxs-hr-fa ce: To prepare for the patient, evaluate the patients condition, and management options. 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 Counted for documenting, reviewing records, labs, sending referral, instructions and disposition moderate [facility] 10/01/2024 Pyuria (ICD-10 - R82.81) encounter both fktk-ko-znan and dxe-aewd-kd-fa ce: To prepare for the patient, evaluate the patients condition, and management options. Counted for documenting, reviewing records, labs, sending referral, instructions and disposition. Time spent 45 min 10/01/2024 Acute midline low back pain without sciatica (ICD-10 - M54.50) encounter both bwuo-jb-xxac and zdg-atpn-xc-fa ce: To prepare for the patient, evaluate the patients condition, and management options. Counted for documenting, reviewing records, labs, sending referral, instructions and disposition. Time spent 45 min 03/26/2024 Body mass index (BMI) of 35.0 to 35.9 (ICD-10 - Z68.35) Plan your meals Gradual exercise 150min a week Weight loss goal 1-2 pounds per week Reduce dietary fat and carbohydrates can reduce calories encounter both gfaa-xh-uicu and vjc-cfjt-js-fa ce: To prepare for the patient, evaluate the patients condition, and management options. Counted for documenting, reviewing records, labs, sending referral, instructions and disposition moderate [facility] 10/01/2024 Body mass index [BMI] 34.0-34.9, adult (ICD-10 - Z68.34) Plan your meals Gradual exercise 150min a week Weight loss goal 1-2 pounds per week Reduce dietary fat and carbohydrates can reduce calories encounter both dmln-co-pigj and nmy-wspv-kc-fa ce: To prepare for the patient, evaluate the patients condition, and management options. Counted for documenting, reviewing records, labs, sending referral, instructions and disposition. Time spent 45 min 03/26/2024 Other encounter both mqcu-kv-uuxu and ubj-xeal-jq-fa ce: To prepare for the patient, evaluate the patients condition, and management options. Counted for documenting, reviewing records, labs, sending referral, instructions and disposition moderate mdm Plan Of Treatment Pending Test Test Name Order Date Vitamin B12 and Folate 10/14/2020 Hemoglobin A1c 10/14/2020 Hemoglobin A1c 06/12/2019 TSH 04/18/2019 TSH 10/14/2020 CBC With Differential/Platelet 9 Lipid Panel With LDL/HDL Ratio 9 Lipid Panel 10/14/2020 Comp. Metabolic Panel (14) 04/18/2019 Comp. Metabolic Panel (14) 10/14/2020 CBC 10/14/2020 Urinalysis 10/14/2020 PSA, total 04/18/2019 Vitamin B12 and Folate 09/28/2021 Vitamin B12 and Folate 10/01/2024 Vitamin B12 and Folate 04/05/2023 Vitamin B12 and Folate 03/26/2024 Vitamin B12 and Folate 10/25/2023 Vitamin B12 and Folate 10/05/2022 Iron and TIBC 04/05/2023 Hemoglobin A1c 04/05/2023 Hemoglobin A1c 10/01/2024 Hemoglobin A1c 09/28/2021 Hemoglobin A1c 10/05/2022 Hemoglobin A1c 10/25/2023 Hemoglobin A1c 03/26/2024 Urinalysis, Complete 03/26/2024 Urinalysis, Complete 10/25/2023 Urinalysis, Complete 09/28/2021 Urinalysis, Complete 04/05/2023 TSH 04/05/2023 TSH 10/01/2024 TSH 09/28/2021 TSH 10/25/2023 TSH 03/26/2024 TSH 10/05/2022 CBC With Differential/Platelet 3 CBC With Differential/Platelet 4 CBC With Differential/Platelet 4 CBC With Differential/Platelet 3 CBC With Differential/Platelet 2 CBC With Differential/Platelet 5 CBC With Differential/Platelet 3 Vitamin D, 25-Hydroxy 03/26/2024 Albumin/Creatinine Ratio,Urine 4 Albumin/Creatinine Ratio,Urine 4 Albumin/Creatinine Ratio,Urine 3 Albumin/Creatinine Ratio,Urine 3 Albumin/Creatinine Ratio,Urine 5 B-Type Natriuretic Peptide 08/26/2022 B-Type Natriuretic Peptide 10/05/2022 Lipid Panel With LDL/HDL Ratio 3 Lipid Panel With LDL/HDL Ratio 4 Lipid Panel With LDL/HDL Ratio 4 Lipid Panel With LDL/HDL Ratio 2 Lipid Panel With LDL/HDL Ratio 5 Lipid Panel With LDL/HDL Ratio 3 Comp. Metabolic Panel (14) 08/26/2022 PSA Total+% Free 10/25/2023 CMP14+eGFR 10/25/2023 CMP14+eGFR 03/26/2024 CMP14+eGFR 10/05/2022 CMP14+eGFR 09/28/2021 CMP14+eGFR 04/05/2023 CMP14+eGFR 10/01/2024 LIPID PANEL WITH RATIOS 12/14/2022 LIPID PANEL WITH RATIOS 04/05/2022 LIPID PANEL (REFL) 04/15/2020 LIPID PANEL (REFL) 10/11/2019 MICROALBUMIN, RANDOM URINE (W/CREATININE ) 12/14/2022 MICROALBUMIN, RANDOM URINE (W/CREATININE ) 04/05/2022 COMPREHENSIVE METABOLIC PANEL 04/05/2022 COMPREHENSIVE METABOLIC PANEL 12/14/2022 COMPREHENSIVE METABOLIC PANEL 04/15/2020 COMPREHENSIVE METABOLIC PANEL 10/11/2019 CBC (H/H, RBC, INDICES, WBC, PLT) 2019 CBC (H/H, RBC, INDICES, WBC, PLT) 2019 CBC (INCLUDES DIFF/PLT) 12/14/2022 CBC (INCLUDES DIFF/PLT) 04/05/2022 URINALYSIS, COMPLETE 04/05/2022 URINALYSIS, COMPLETE 12/14/2022 URINALYSIS MICROSCOPIC 04/15/2020 HEMOGLOBIN A1c 04/15/2020 HEMOGLOBIN A1c 12/14/2022 HEMOGLOBIN A1c 10/11/2019 VITAMIN B12/FOLATE, SERUM PANEL 12/15/19 23 VITAMIN B12/FOLATE, SERUM PANEL 04/05/20 22 TSH 04/05/2022 TSH 12/14/2022 TSH 04/15/2020 TSH 10/11/2019 Future Test Test Name Order Date Hemoglobin A1c 03/31/2021 Urinalysis, Complete 03/31/2021 TSH 03/31/2021 CBC With Differential/Platelet 1 Lipid Panel With LDL/HDL Ratio 1 CMP14+eGFR 03/31/2021 Next Appt Details Provider Name:Stacia arevalo, 04/01/2025 01:45:00 PM, [address] [facility] [address], [place], [address], Insurance Providers Payer Name Payer Address Payer Phone Subscriber Number Group Number Insured Name Patient Relationship to Insured Coverage Start Date Coverage End Date Medicare [employer] [address] [place] [phone] [id number] John Brunson Self - patient is the insured 7 [facility] [address] [place] [address] [id number] Mernajose John Self - patient is the insured 7 9 Medical (General) History Medical History History ICD Code asthma: Yes heart murmur: Yes sleep disorder, chronic: Yes chronic obstructive pulmonary disease (C OPD): Yes blood transfusion: Yes depression: No urinary incontinence: No family history of coronary artery diseas e: Yes Thoracic aortic aneurysm without rupture Essential (primary) hypertension Hyperlipidemia unspecified Chronic obstructive pulmonary disease, u nspecified COPD type Moderate asthma, unspecified whether com plicated CHF: 04/2019 Tetanus vaccine Date: September 2017 Influenza vaccine Date: 03/26/2024 Zoster vaccine Date: 2012 Prevnar 13: 09/30/2014 Covid-19 pfizer: 07/07/2020, 07/25/2020, , 01/2022 Colonoscopy Date: 2013 Eye exam 06/26/2024 Body mass index (BMI) 38.0-38.9, adult ( resolved 04/05/2022) undefined Body mass index (BMI) 36.0-36.9, adult ( resolved 04/05/2022) Body mass index (BMI) 37.0-37.9, adult ( resolved 11/25/2022) undefined Body mass index (BMI) of 36.0 to 36.9 (r esolved 11/25/2022) Body mass index [BMI] 34.0-34.9, adult ( resolved 01/10/2023) undefined BMI 34.0-34.9,adult (resolved 03/26/2024 ) undefined Surgical History Surgery Date(Month/Year) back 2004 knees 2006 neck surgery 2008 turp 06/2024 Hospitalization History Reason Date(Month/Year) see above
--- OUTSIDE RECORDS SUMMARY | 2025-02-19 11:49 | XMS_ITS | Patient Health Record ---
Author Organization [facility] Address [address] [address] Care Team Providers Care .Net Architect Name Role Phone Stacia Quiles Primary Care Provider [place] LEONARDO Chandler Unavailable [phone] VITOR MAHERMARY Unavailable [phone] Allergies No Known Allergies Results Component Value Reference Range Notes Urinalysis, Complete Reviewed date:07/17/2024 08:26:42 AM Interpretation: Performing Lab: Notes/Report: Urine-Color red Appearance cloudy Specific [place] 1.020 pH 6.0 Glucose neg Urine Protein 100 Occult Blood 200 Bilirubin neg Urobilinogen,Semi-Qn 0.2 Nitrite, Urine neg Ketones neg Leucocyte Esterase 500 Urinalysis, Complete Reviewed date:07/31/2024 10:46:45 AM Interpretation: Performing Lab: Notes/Report: Urine-Color YELLOW Appearance CLEAR Specific [place] 1.015 pH 5.5 Glucose NEG Urine Protein 15 Occult Blood 200 Bilirubin NEG Urobilinogen,Semi-Qn 0.2 Nitrite, Urine NEG Ketones NEG Leucocyte Esterase 500 Urinalysis, Complete Reviewed date:10/16/2024 11:01:17 AM Interpretation: Performing Lab: Notes/Report: Urine-Color yellow Appearance clear Specific [place] 1.015 pH 6.0 Glucose neg Urine Protein neg Occult Blood neg Bilirubin neg Urobilinogen,Semi-Qn 0.2 Nitrite, Urine neg Ketones neg Leucocyte Esterase neg Reason For Referral No Information Medications Medication SIG (Take, Route, Frequency, Duration) Notes Start Date End Date Status Potassium Chloride ER 10 MEQ TAKE 1 CAPS ULE BY MOUTH WITH FOOD 2 TIMES A DAY Oral; Duration: 90 Days Active Famotidine 40 MG TAKE 1 TABLET DAILY AT BEDTIME Oral; Duration: 90 Days Active Losartan Potassium 50 MG Oral; Duration: 90 Days Active Gabapentin 600 MG TAKE 1 TO 2 TABLETS BY MOUTH ONCE A DAY Oral; Duration: 90 Days Active Tadalafil 5 MG 1 tablet as needed Orally Once a day Active Amitriptyline HCl 10 MG 1 tablet at bedtime Orally; Duration: 30 days As needed 06/21/2024 Active Albuterol Sulfate HFA 108 (90 Base) MCG/ACT INHALE 1 PUFF EVERY 4 HOURS NEEDED Inhalation; Duration: 59 Days Active metFORMIN HCl 1000 MG Oral; Duration: 90 Days Active Bumetanide 1 MG Oral; Duration: 90 Days Active Social History Tobacco Use: Social History Observation Description Date Details (start date - stop date) Former Smoker NA - NA Tobacco Use/Smoking Question Answer Notes Tobacco use: former smoker Problems Problem Type SNOMED Code ICD Code Onset Dates Problem Status W/U Status Risk Notes Problem Benign prostatic hypertrophy with outflow obstruction (697511276) BPH loc w urin obs/LUTS (N40.1) Active confirmed Vital Signs Heart Rate 66 /min 10/16/2024 Respiratory Rate 12 /min 10/16/2024 Oximetry 95 % 07/31/2024 Blood pressure diastolic 70 mm Hg 10/16/2024 Weight-kg 115.67 kg 10/16/2024 Height 70 in 10/16/2024 Blood pressure systolic 136 mm Hg 10/16/2024 Weight 255 lbs 10/16/2024 BMI 36.58 kg/m2 10/16/2024 Encounters Encounter Location Date Provider Diagnosis [address] [address] 06/27/2024 LEONARDO TILLMAN [address] [address] 06/21/2024 LEONARDO CHINMAYELLA BPH loc w urin obs/LUTS N40.1 and Acute urinary retention R33.8 [facility] [address] [address] 07/02/2024 BEATRICE GAVAN BPH loc w urin obs/LUTS N40.1 and Acute urinary retention R33.[address] [address] 07/17/2024 BEATRICE GAVAN BPH loc w urin obs/LUTS N40.1 ; Acute urinary retention R33.8 ; Acute UTI N39.0 and Gross hematuria R31.[address] [address] 07/31/2024 BEATRICE MERCADOVAN BPH loc w urin obs/LUTS N40.1 ; Acute urinary retention R33.8 ; Acute UTI N39.0 and Gross hematuria R31.[address] [address] 10/16/2024 BEATRICE MERCADOLULA Acute urinary retention R33.8 and BPH loc w urin obs/LUTS N40.[address] [address] 06/18/[address] [address] 06/25/[address] [address] 07/23/[address] [address] 07/24/2024 [facility] Assessments Encounter Date Diagnosis (ICD Code) Assessment Notes Treatment Notes Treatment Clinical Notes Section Notes 06/21/2024 BPH loc w urin obs/LUTS (ICD-10 - N40.1) discuss his history in detail with the records from his urologist in [place], and his cardiac clearance, we will proceed with trans urethral resection of his prostate risks and expectations were reviewed in detail. 06/21/2024 Acute urinary retention (ICD-10 - R33.8) 07/02/2024 BPH loc w urin obs/LUTS (ICD-10 - N40.1) follow up in 3 weeks UA PVR 07/17/2024 BPH loc w urin obs/LUTS (ICD-10 - N40.1) follow up in 2 weeks UA PVR, he can stop his tamsulosin 07/17/2024 Acute urinary retention (ICD-10 - R33.8) 07/31/2024 BPH loc w urin obs/LUTS (ICD-10 - N40.1) doing well, follow up in 2 months prior to returning up [place] with a UA PVR 10/16/2024 Acute urinary retention (ICD-10 - R33.8) 10/16/2024 BPH loc w urin obs/LUTS (ICD-10 - N40.1) doing well, follow up in 6 months with a UA PVR 07/31/2024 Acute urinary retention (ICD-10 - R33.8) PVR normal 42 status post TURP doing well 07/17/2024 Acute UTI (ICD-10 - N39.0) we will send urine for culture call with results and treat if needed. 07/02/2024 Acute urinary retention (ICD-10 - R33.8) 07/17/2024 Gross hematuria (ICD-10 - R31.0) continue finasteride, increase hydration, limit activity 07/31/2024 Acute UTI (ICD-10 - N39.0) patient is asymptomatic completed course of Cipro 07/31/2024 Gross hematuria (ICD-10 - R31.0) has resolved, he will continue finasteride for 30 more days then stop Plan Of Treatment Next Appt Details Provider Name:BEATRICE ASHER, 03/19/2025 10:30:00 AM, [address] [place] [address], [address], Insurance Providers Payer Name Payer Address Payer Phone Subscriber Number Group Number Insured Name Patient Relationship to Insured Coverage Start Date Coverage End Date MEDICARE [address] [address] [place] [address] [phone] [id number] CONNIE SUN Self - patient is the insured [facility] PPO [address] [place], [place] [id number] SUN ROSALES Self - patient is the insured Medical (General) History Medical History History ICD Code heart murmur diabetes asthma diverticulitis COPD hyperlipidemia hypertension anemia benign prostatic hyperplasia heart failure urinary retention urinary tract infection BPH with obstruction Surgical History Surgery Date(Month/Year) BAck surgery neck surgery bilateral knee TURP Hospitalization History Reason Date(Month/Year) urinary retention surgery
--- OUTSIDE RECORDS SUMMARY | 2025-02-19 11:49 | XMS_ITS | Patient Health Record ---
Author Organization [facility] Address [address] [place], [place] [id number] Support Name Relationship Address Phone JUDITH ROSALES Emergency Contact Unknown Unavailabl e SUN ROSALES Guarantor Unknown [phone] Reason For Referral No Information Medications Medication SIG (Take, Route, Frequency, Duration) Notes Start Date End Date Status Losartan Potassium 50 MG 1 A DAY Oral; Duration: 30 Losartan 50mg Tablet 1 A DAY #90 (Ninety) tablet(s) 03/14/2018 Active Gabapentin 600 MG 1 po qhs Oral; Duration: 30 Gabapentin 600mg Tablet 1 po qhs #90 (Ninety) tablet(s) 01/02/2019 Active Pantoprazole Sodium 40 MG 1 tablet Orally Once a day; Duration: 90 days Pantoprazole 40mg Tablets, Delayed Release 1 po qd prn #90 (Ninety) tablet(s) 03/14/2018 Active Atorvastatin Calcium 20 MG 1 po qd Oral; Duration: 30 Atorvastatin Calcium 20mg Tablet 1 po qd #90 (Ninety) tablet(s) 03/14/2018 Active Tamsulosin HCl 0.4 MG 1 cap once daily Oral; Duration: 30 Tamsulosin HCl 0.4mg Capsules 1 cap once daily #90 (Ninety) capsule(s) 03/14/2018 Active Ventolin HFA 108 (90 Base) MCG/ACT 1 puff q4-6 h prn Inhalation; Duration: 30 Ventolin HFA (Albuterol) 90mcg/1actuation Oral Inhaler 1 puff q4-6 h prn #3 (Three) inhaler(s) 03/14/2018 Active Fexofenadine HCl 180 MG 1 po qd Oral; Duration: 30 Fexofenadine HCl 180mg Tablet 1 po qd #90 (Ninety) tablet(s) 03/14/2018 Active Voltaren 1% 1 gm over affected area prn Transdermal; Duration: 30 *please review for potential update for e-prescription and drug interaction check* Voltaren (Diclofenac Sodium) 1% Topical Gel 1 gm over affected area prn #100 ([place]) gm 03/14/2018 Active Metoprolol Succinate ER 50 MG 1 tablet Orally Once a day; Duration: 90 days Active Singulair 10 MG 1 po qd Oral; Duration: 30 Singulair (Montelukast Sodium) 10mg Tablet 1 po qd #90 (Ninety) tablet(s) 03/14/2018 Active Proscar 5 MG Take 1 tablet(s) by mouth daily Oral; Duration: 30 Proscar (Finasteride) 5mg Tablet Take 1 tablet(s) by mouth daily #90 (Ninety) tablet(s) 03/14/2018 Active Viagra 100 MG 1 po qd prn Oral; Duration: 30 Viagra (Sildenafil Citrate) 100mg Tablet 1 po qd prn #30 (Thirty) tablet(s) 03/14/2018 Active Problems Problem Type SNOMED Code ICD Code Onset Dates Problem Status W/U Status Risk Notes Problem Hypogammaglobulinemi a (955535037) 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 Active confirmed [facility] 7505- Problem Morbid obesity (disorder) (180676025) Morbid (severe) obesity due to excess calories (E66.01) 2016 Active confirmed [facility] 7505- Problem Hyperlipidemia (00830119) Hyperlipidemia, unspecified (E78.5) 2015 Active confirmed [id number] 7505- Problem Sleep apnea (31079703) Sleep manager urology ea, unspecified (G47.30) 2015 Active confirmed [id number] [id number]- Problem Hereditary disorder of nervous system (733725851) Hereditary and idiopathic neuropathy, unspecified (G60.9) 2016 Active confirmed [facility] 7505- Problem Essential hypertensi on (92139020) Essential (primary) hypertension (I10) 2016 Active confirmed [facility] 7505- Problem Thoracic aortic aneurysm without rupture (74012494) Thoracic aortic aneurysm, without rupture (I71.2) 2015 Active confirmed [id number] 7505- Problem Mild intermittent asthma (393206960) Mild intermittent asthma, uncomplicated (J45.20) 2015 Active confirmed [id number] [id number]- Problem Gastro-esophageal reflux disease without esophagitis (109450255) Gastro-esophageal reflux disease without esophagitis (K21.9) 2015 Active confirmed [id number] 7505- Problem Localized edema (4094482) Localized edema (R60.0) 2017 Active confirmed [id number] 7505- Problem Impaired fasting glucose (158033786) Impaired fasting glucose (R73.01) 2015 Active confirmed [id number] 7505- Problem Benign prostatic hypertrophy without outflow obstruction (779190226) Benign prostatic hyperplasia without lower urinary tract symptoms (N40.0) 2016 Active confirmed [id number] 7505- Problem Impacted cerumen (56329676) Impacted cerumen, right ear (H61.21) 2017 Problem resolved confirmed [id number] 7505- Problem Acute suppurative otitis media (disorder) (074037005) Acute suppurative otitis media without spontaneous rupture of ear drum, left ear (H66.002) 2017 Problem resolved confirmed [id number] 7505- Problem 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) 2017 Problem resolved confirmed [id number] 7505- Problem Acute upper respiratory infection (94000182) Acute upper respiratory infection, unspecified (J06.9) 2017 Problem resolved confirmed [id number] 7505- Problem Pneumonia (153072593) Pneumonia, unspecified organism (J18.9) 2017 Problem resolved confirmed [id number] 7505- Problem Cervicalgia (65851360) Cervicalgia (M54.2 ) 2015 Problem resolved confirmed [id number] 7505- Problem Dyspnea (654501658) Dyspnea, unspecified (R06.00) 2017 Problem resolved confirmed [facility] 7505- Problem Eruption of skin (985329847) Rash and other nonspecific skin eruption (R21) 2016 Problem resolved confirmed [id number] 7505- Problem Spontaneous ecchymos is (848301295) Spontaneous ecchymoses (R23.3) 2017 Problem resolved confirmed [id number]- Problem Open wound of right forearm (disorder) (44900401429442743) Unspecified open wound of right forearm, initial encounter (S51.801A) 2017 Problem resolved confirmed [facility]505- Problem Fall () Unspecified fall , initial encounter (W19.XXXA) 2017 Problem resolved confirmed [facility] 7505- Problem Adult health examination (796085797) Encounter for general adult medical examination without abnormal findings (Z00.00) 2016 Problem resolved confirmed [facility] 7505- Problem Body mass index 25-2 9 - overweight (799847591) Body mass index (BMI) 27.0-27.9, adult (Z68.27) 2015 Problem resolved confirmed [facility] 7505- Problem Obese class II (745345456528805) Body mass index (BMI) 35.0-35.9, adult (Z68.35) 2017 Problem resolved confirmed [facility] 7505- Problem Body mass index 35.0 0 to 39.99 (492072385448382) Body mass index (BMI) 36.0-36.9, adult (Z68.36) 2016 Problem resolved confirmed [facility] 7505- Problem Body mass index 35.0 0 to 39.99 (783140452174585) Body mass index (BMI) 37.0-37.9, adult (Z68.37) 2017 Problem resolved confirmed [facility] 7505- Problem Body mass index 35.0 0 to 39.99 (090826441223742) Body mass index (BMI) 38.0-38.9, adult (Z68.38) 2017 Problem resolved confirmed [id number] 7505- Problem Family history of ischemic heart disease (417385297) Family history of ischemic heart disease and other diseases of the circulatory system (Z82.49) 2015 Problem resolved confirmed [facility]505- Problem Prediabetes (266674735) Prediabetes (R73.03) 2017 Problem resolved confirmed [facility]505- Problem Elevated PSA (718334556) Elevated prostate specific antigen [PSA] (R97.20) 2016 Problem resolved confirmed [facility]- Plan Of Treatment No Information Insurance Providers Payer Name Payer Address Payer Phone Subscriber Number Group Number Insured Name Patient Relationship to Insured Coverage Start Date Coverage End Date MEDICARE PART B [address] [address] [place] [address] [phone] [id number] CONNIE SUN Self - patient is the insured 7 [facility] [employer] [address] [place] [address] [id number] CONNIE SUN Self - patient is the insured MEDICARE PART B [address] [address] [place] [address] [phone] [id number] CONNIE SUN Self - patient is the insured 6 8
== END 2025-02-19 10:25 | disposition home or self-care (01) ==
LOC: HO.HMCFM 09:49
PROVIDERS: PCP Internal Medicine; Visit Provider Internal Medicine
DX: E11.59 Type 2 diabetes mellitus with other circulatory complications (principal); I50.83 High output heart failure; R05.1 Acute cough

== ENCOUNTER → 2025-02-19 09:48 | Outpatient (BNVA) | payer MEDICARE, SELFPAY | PROVIDERS: PCP Internal Medicine; Visit Provider Internal Medicine | DX: E11.59 Type 2 diabetes mellitus with other circulatory complications (principal); R05.1 Acute cough; I50.83 High output heart failure; Z87.891 Personal history of nicotine dependence | CPT/HCPCS: 83036; 99212 ==